=== PATIENT | female | born 1945 | race Caucasian/White ===

== ENCOUNTER 2016-12-12 07:24 | Outpatient (CLI) | payer MEDICARE, BC ==
--- NOTE | ~2016-12-12 | HEMODYNAMI ---
PATIENT:ADRY HIGGINS MEDICAL RECORD: [id number] : 47 LOCATION:DMattCAT ADMISSION DATE: 12/12/16 Generatedon:12/12/20169:56 Patient name: ADRY HIGGINS Patient #: [id number] SSN: D OB: 1945 Date of study: 12/12/2016 Page: Of Hemodynamic Procedure Report Patient Data Patient Demographics Procedure consent was obtained First Name: ADRY Gender: Female Last Name: RONALDO : 1945 Patient #: [id number] Age: 71 year(s) Race: Unknown Additional ID: [id number] Contact details [address]: [address] [place] [address] State: [place] City: [place] Zip code: [address] Admission Admission Data Admission Date: 12/12/2016 Admission Time: 7:24 Height (in.): 68 BSA: 2.16 (m2) Height (cm.): 172.72 BMI: 34.53 (kg/m2) Weight (lbs.): 227.08 Weight (kg.): 103 Lab Results Lab Result Date: 12/12/2016 Lab Result Time: 0:00 Biochemistry Name Units Result Min Max Creatinine mg/dl 0.7 --(*---)-- 0.6 1.3 CBC Name Units Result Min Max Hemoglobin g/dl 15.1 --(-*--)-- 13.5 17.5 Procedure Procedure Types Cath Procedure Diagnostic Procedure LHC LHC w/Coronaries w/Grafts FFR/IVUS Intra-Coronary IVUS Initial PCI Procedure Coronary Stent Initial Miscellaneous Procedures Moderate Sedation up to 15 minutes Peripheral Cath Diagnostic Procedure Cath Peripheral Four Vessel Arteriogram Procedure Description Procedure Date Procedure Date: 12/12/2016 Procedure Start Time: 9:32 Procedure End Time: 9:55 Procedure Staff Name Function Fletcher Rice MD Performing Physician Leandra Botello RT Scrub Juliane Artis RN Nurse Oswaldo Carter RT Monitor Conrad Richardson RN Meat Clerk Procedure Data Cath Procedure Fluoroscopy Diagnostic fluoroscopy Total fluoroscopy Time: 5.7 time: 5.7 min min Diagnostic fluoroscopy Total fluoroscopy dose: dose: 1166 mGy 1166 mGy Contrast Material Contrast Material Type Amount (ml) Isovue 300 155 Entry Location Entry Primary Successful Side Size Upsize Upsize Entry Closure Succes sful Closure Location (Fr) 1 (Fr) 2 (Fr) Remarks Device Remarks Femoral Right 5 Fr 6 Fr Exoseal artery Short Estimated blood loss: 10 ml Diagnostic catheters Device Type Used For End Catheter Placement Cordis 5Fr Pigtail Procedure Catheter (MP) Cordis 5Fr JL 4.0 Procedure Catheter (MP) Cordis 5Fr 3DRC Catheter Procedure (MP) Diagnostic Infinity 5Fr Procedure AR 2 MOD catheter Procedure Complications No complications Procedure Medications Medication Administration Route Dosage Oxygen NC 2 l/min Lidocaine 2% added to field 20 Heparin Flush Bag added to field 2 bags (1000units/500ml NS) 0.9% NaCl I.V. 100 ml/hr Versed I.V. 1 mg Fentanyl I.V. 50 mcg Versed I.V. 1 mg Fentanyl I.V. 50 mcg Heparin Bolus I.V. 4000 units Integrilin (Bolus I.V. 9 ml 2mg/ml) Plavix P.O. 600 mg Hemodynamics Rest BSA: 2.16 (m2) HGB: 15.1 (g/dl) O2 Consumption: Estimated: 196.24 (ml/min) O2 Co nsumption indexed: Estimated:90.85 (ml/min/m) Heart Rate: 67 (bpm) Snapshots Pre Cath Intra NCS Post Cath Vital Signs Time Heart Resp SPO2 etCO2 NIBP (mmHg) Rhythm Pain Sedation Rate (ipm) (%) (mmHg) Status Level (bpm) 9:13:01 74 18 97 37.3 175/87(133) NSR 0 (11) 10(A) , No pain 9:17:35 66 18 99 41.1 159/84(136) NSR 0 (11) 10(A) , No pain 9:22:01 66 18 98 41.8 152/84(127) NSR 0 (11) 10(A) , No pain 9:26:26 63 14 94 47.8 133/66(110) NSR 0 (11) 10(A) , No pain 9:30:42 65 13 94 41.1 123/69(98) NSR 0 (11) 10(A) , No pain 9:35:02 67 12 95 32.1 137/64(97) NSR 0 (11) 9(A) , No pain 9:39:18 74 13 96 48.6 133/71(104) NSR 0 (11) 9(A) , No pain 9:43:36 72 14 95 0 115/57(90) NSR 0 (11) 9(A) , No pain 9:47:52 76 12 95 17.9 118/64(100) NSR 0 (11) 9(A) , No pain 9:52:10 74 14 96 50.1 123/68(105) NSR 0 (11) 10(A) , No pain Medications Time Medication Route Dose Verified Delivered Reason Notes Effectiveness by by 9:14:49 Oxygen NC 2 Fletcher Buffie used for l/min Dwayne Artis RN procedure 9:14:59 Lidocaine 2% added 20ml Fletcher Fletcher for local to vial Dwayne Rice MD anesthetic field 9:15:05 Heparin Flush added 2 Fletcher Fletcher used for Bag to bags Dwayne Rice MD procedure (1000units/500ml field NS) 9:15:14 0.9% NaCl I.V. 100 Fletcher Buffie Per physician ml/hr Dwayne Artis RN 9:30:06 Versed I.V. 1 mg Fletcher Greerie for sedation Dwayne Artis RN 9:30:12 Fentanyl I.V. 50 Fletcher Buffie for sedation mcg Dwayne Artis RN 9:38:46 Versed I.V. 1 mg Fletcher Grereie for sedation Dwayne Artis RN 9:38:50 Fentanyl I.V. 50 Fletcher Greerie for sedation mcg Dwayne Artis RN 9:41:22 Heparin Bolus I.V. 4000 Fletcher Greerie for verifie d units Dwayne Artis RN anticoagulation with dr rice 9:43:05 Integrilin I.V. 9 ml Fletcher Greerie for wasted 1 (Bolus 2mg/ml) Dwayne Artis RN antiplatelet ml of therapy vial 9:53:10 Plavix P.O. 600 Fletcher Cardozo for mg Dwayne Artis RN antiplatelet therapy Procedure Log Time Note 9:00:30 Conrad Richardson RN sent for patient. Start room use. 9:00:31 Time tracking: Regular hours 9:00:35 Plan of Care:Hemodynamics will remain stable., Cardiac rhythm will remain stable., Comfort level will be maintained., Respiratory function will remain adequate., Patient/ family verbilizes understanding of procedure., Procedure tolerated without complication., Recovers from procedure without complications.. 9:05:32 Lab Result : Hemoglobin 15.1 g/dl 9:05:32 Lab Result : Creatinine 0.7 mg/dl 9:07:01 Patient received from Pre/Post Procedure Room to [facility] 2 Alert and oriented. Tansferred to table in Supine position. 9:07:02 Warm blankets applied, and ramesh hugger turned on for patient comfort. 9:07:02 Correct patient and procedure confirmed by team. 9:07:03 Signed procedure consent form obtained from patient. 9:07:05 ECG and BP/O2 sat monitors applied to patient. 9:07:06 Full Disclosure recording started 9:11:35 Vital chart was started 9:14:49 Oxygen 2 l/min NC was administered by Juliane Artis RN; used for procedure; 9:14:59 Lidocaine 2% 20ml vial added to field was administered by Fletcher Rice MD; for local anesthetic; 9:15:05 Heparin Flush Bag (1000units/500ml NS) 2 bags added to field was administered by Fletcher Rice MD; used for procedure; 9:15:14 0.9% NaCl 100 ml/hr I.V. was administered by Juliane Artis RN; Per physician; 9:18:11 Baseline sample Acquired. 9:18:14 Rhythm: sinus rhythm 9:18:24 H&P Date Dictated: 12/08/2016 Within 30 days and on chart., H&P Addendum completed by physician on day of procedure. (MUST COMPLETE FOR ALL OUTPATIENTS). 9:18:24 Pre-procedure instructions explained to patient. 9:18:25 Pre-op teaching completed and patient verbalized understanding. 9:20:02 Family in patients room. 9:20:04 Patient NPO since Midnight. 9:20:06 Is the patient allergic to Iodine/contrast media? No. 9:20:08 Is patient on blood thinner?No 9:20:10 Patient diabetic? Yes. 9:20:27 If diabetic: On Metformin? Yes 9:20:30 If on Metformin: Last Dose? 12/10/2016 9:20:33 Patient not . Patient is over age 55. 9:20:39 Snore? Yes 9:20:40 Sleep apnea? No 9:20:41 Deviated septum? No 9:20:41 Opens mouth fully? Yes 9:20:42 Sticks out tongue? Yes 9:20:45 Airway obstruction? Yes COPD 9:20:49 Dentures? Yes IN 9:20:52 Pre procedure: right dorsailis pedis pulse 1+ Palpable, but thready & weak; easily obliterated 9:20:54 Patient pain scale 0/10 ?. 9:21:10 IV patent on arrival in left hand with 0.9% NaCl at [facility]. 9:22:22 Lab results completed and on chart. 9:22:26 Right groin area was prepped with chlora-prep and draped in sterile fashion 9:22:27 Alarms reviewed by R. N. 9:22:28 Sharps counted by scrub and verified by R.N. 9:22:50 Procedure type changed to Cath procedure, Diagnostic procedure, LHC, LHC w/Coronaries w/Grafts, FFR/IVUS, Intra-Coronary IVUS Initial, PCI procedure, Coronary Stent Initial, Miscellaneous Procedures, Moderate Sedation up to 15 minutes, Peripheral Cath Diagnostic Procedure, Cath Peripheral, Four Vessel Arteriogram 9:23:52 Use device set Femoral Dx 9:23:53 Tegaderm 4 x 4 opened to sterile field. 9:23:55 Acist Hand Control opened to sterile field. 9:23:55 Acist Manifold opened to sterile field. 9:23:57 Acist Syringe opened to sterile field. 9:23:57 Bag Decanter opened to sterile field. 9:23:57 Medline Cath Pack opened to sterile field. 9:23:58 Terumo 5Fr Freeborn Sheath opened to sterile field. 9:23:58 St Yosi 260cm J .035 wire opened to sterile field. 9:23:59 Diagnostic Infinity 5Fr Multipack catheter opened to sterile field. 9:24:48 Cook 18G 7cm Percutaneous Entry needle opened to sterile field. 9:24:59 Zero performed for pressure channel P1 9:25:01 Zero performed for pressure channel P1 9:29:07 --------ALL STOP TIME OUT------ 9:29:08 Final Timeout: patient, procedure, and site verified with staff and physician. All members of the team are in agreement. 9:29:15 Right groin site verified by team. 9:29:17 Physical assessment completed. ASA score P 2 - A patient with mild systemic disease as per Fletcher Rice MD. 9:29:23 Sedation plan: IV Moderate Sedation Versed, Fentanyl 9:30:06 Versed 1 mg I.V. was administered by Juliane Artis RN; for sedation; 9:30:10 Patient Weight : 227.08 lbs 9:30:12 Fentanyl 50 mcg I.V. was administered by Juliane Artis RN; for sedation; 9:30:15 Patient Height : 68 inches 9:32:53 Procedure started. 9:32:56 Local anesthetic to right femoral artery with Lidocaine 2% by Fletcher Rice MD.INITIAL ACCESS ONLY 9:34:24 A 5 Fr sheath was inserted into the Right Femoral artery 9:34:39 A Cordis 5Fr Pigtail Catheter (MP) was advanced over the wire and used for Procedure. 9:34:43 LV angiography performed. 9:34:44 LV gram done using LYONS 9:34:48 EF : 60 % 9:34:52 Injector settings: Ml/sec: 10, Volume: 20, 9:34:54 Catheter removed. 9:35:05 A Cordis 5Fr JL 4.0 Catheter (MP) was advanced over the wire and used for Procedure. 9:35:24 LCA angiography performed. 9:36:09 Catheter removed. 9:36:16 A Cordis 5Fr 3DRC Catheter (MP) was advanced over the wire and used for Procedure. 9:36:55 CASTRO to LAD angiography performed. 9:37:06 Left subclavian angiography performed 9:37:56 Left carotid angiography performed. 9:37:59 Right subclavian angiography performed 9:38:46 Versed 1 mg I.V. was administered by Juliane Artis RN; for sedation; 9:38:48 RCA angiography performed. 9:38:50 Fentanyl 50 mcg I.V. was administered by Juliane Artis RN; for sedation; 9:39:08 Catheter removed. 9:39:33 A Diagnostic Infinity 5Fr AR 2 MOD catheter was advanced over the wire and used for Procedure. 9:40:32 Catheter removed. unable to cannulate vessel. 9:40:34 Terumo 6Fr Freeborn Sheath opened to sterile field. 9:40:35 Merit BasixCompak Inflation Kit opened to sterile field. 9:41:12 [place] IVUS Catheter opened to sterile field. 9:41:12 [place] Sci PT Graphix J 300cm 0.014 guide wire opened to sterile field. 9:41:13 Medtronic Launcher 6Fr AR 2.0 guide catheter opened to sterile field. 9:41:22 Heparin Bolus 4000 units I.V. was administered by Juliane Artis RN; for anticoagulation; verified with dr rice 9:41:25 Sheath upsized to a 6 Fr Short. 9:41:31 6 Fr AR 2 guide catheter was inserted over the wire 9:42:04 PT GRAPHIX wire advanced. 9:42:28 Wire removed. damaged. 9:42:34 [place] Sci PT Graphix J 300cm 0.014 guide wire opened to sterile field. 9:42:47 New PT GRAPHIX wire advanced. 9:43:05 Integrilin (Bolus 2mg/ml) 9 ml I.V. was administered by Juliane Artis RN; for antiplatelet therapy; wasted 1 ml of vial 9:43:26 Wire advanced across lesion. 9:43:30 IVUS catheter advanced over wire. 9:44:18 IVUS pass to RCA lesion performed. 9:46:17 IVUS catheter removed over wire. 9:47:18 Inflation Number: 1 A Medtronic Integrity 4.0 X 26 stent was prepped and advanced across the Mid RCA. The stent was deployed at 15 JENSEN for 0:10 (min:sec). 9:47:23 Stent catheter was removed intact over wire. 9:47:24 Wire removed. 9:47:27 Guide catheter removed. 9:47:44 Sheath removed intact; hemostasis achieved with Exoseal to the Right Femoral artery. 9:47:54 Cordis 6Fr Exoseal opened to sterile field. 9:47:56 Procedure ended.(Physican Out) 9:51:00 Fluoroscopy time 05.70 minutes. 9:51:04 Fluoroscopy dose: 1166 mGy 9:51:04 Flurop Dose total: 1166 9:51:08 Contrast amount:Isovue 300 155ml. 9:51:10 Sharps counted by scrub and verified by R.N. 9:51:12 Insertion/operative site no bleeding no hematoma. 9:51:14 Post-op/insertion site Right Femoral artery dressed using a 4 x 4 and Tegaderm. 9:51:16 Post Procedure Pulses reassessed and unchanged 9:51:18 Post-procedure physical assessment completed. ASA score P 2 - A patient with mild systemic disease as per Fletcher Rice MD. 9:51:22 Post procedure rhythm: unchanged. 9:51:24 Estimated blood loss: 10 ml 9:51:25 Post procedure instruction explained to patient.Patient verbalizes understanding. 9:51:26 Patient needs reinforcement of post procedure teaching. 9:51:27 Procedure and supply charges have been captured, reviewed, submitted and are correct. 9:51:30 Procedure Complication : No complications 9:53:10 Plavix 600 mg P.O. was administered by Juliane Artis RN; for antiplatelet therapy; 9:55:39 Vital chart was stopped 9:55:39 See physician's report for complete and final results. 9:55:42 Report given to Pre/Post Procedure Room. 9:55:44 Patient transfered to Pre/Post Procedure Room with Stretcher. 9:55:47 Procedure ended. 9:55:47 Full Disclosure recording stopped 9:55:56 End room use (Document Last) Intervention Summary Intervention Notes Time ActionType Lesion and Equipment Action# Pressure Duration Attributes Used 9:47:18 Place stent Mid RCA Medtronic 1 15 00:10 Integrity 4.0 X 26 stent Device Usage Item Name Manufacture Quantity Catalog Number Hospital Part Current [facility] Lot# / Charge Number Stock Stock Serial# Code Tegaderm 4 x 3M 1 [id number] 784363 [id number] 5 4 Acist Hand Acist 1 86886 482387 562427 125413 5 Control Medical Systems Inc Acist Acist 1 12253 883099 460672 854615 5 Manifold Medical Systems Inc Acist Acist 1 36300 311192 882148 816777 20 Syringe Medical Systems Inc Bag Decanter Microtek 1 2001S 006664 14071 845861 5 Medical Inc. Medline Cath Cardinal 1 [id number] 546703 34732 473539 5 Pack Health Terumo 5Fr Terumo 1 [id number] 033223 568079 505647 [address] Yosi St Yosi 1 877439 090576 737004 259499 30 260cm J .035 wire Diagnostic Cardinal 1 [id number] 122446 59066 599361 30 Infinity 5Fr Health Multipack catheter Cook 18G 7cm [facility] 1 [id number] 678682 63899 989681 5 Percutaneous Entry needle Cordis 5Fr Cardinal 1 [id number] 5 Pigtail Health Catheter (MP) Cordis 5Fr Cardinal 1 352757 5 JL 4.0 Health Catheter (MP) Cordis 5Fr Cardinal 1 070926 5 3DRC Health Catheter (MP) Diagnostic Cardinal 1 [id number] 128916 028756 929108 20 Infinity 5Fr Health AR 2 MOD catheter Terumo 6Fr Terumo 1 [id number] 575634 647989 015138 40 Freeborn Sheath [facility] Merit 1 [id number] 949715 869195 481743 15 [employer] Medical Inflation Kit Burley Burley 1 [id number] 984184 365324 459821 8 [place] IVUS Catheter [place] Sci [place] 2 [id number] 084668 916520 460612 5 PT Graphix J Scientific 300cm 0.014 guide wire Medtronic Medtronic 1 [id number] 831342 63620 324527 1 Launcher 6Fr AR 2.0 guide catheter Medtronic Medtronic 1 [id number] 552684 739207 1 [id number] Integrity 4.0 X 26 stent Cordis 6Fr Cardinal 1 [id number] 605582 846117 345720 10 [facility] Signature Audit [place] Stage Time Signature Unsigned Intra-Procedure 12/12/2016 Oswaldo Carter 9:56:33 AM RT(R) Signatures Monitor : Oswaldo Carter RT Signature : Date : Time : [facility] [address] [place] [address]
[2016-12-12] MEDS ORDERED: BAYER CHEWABLE81 MG PO (07:42)
[2016-12-12] MEDS ORDERED: JARDIANCE25 MG PO (07:43)
[2016-12-12] MEDS ORDERED: CRESTOR10 MG PO (07:44)
[2016-12-12] MEDS ORDERED: GLUCOPHAGE500 MG PO (07:44)
[2016-12-12] MEDS ORDERED: NEURONTIN 300300 MG PO (07:45)
[2016-12-12] MEDS ORDERED: NORVASC5 MG PO (07:45)
[2016-12-12] MEDS ORDERED: BETAPACE 80 MG80 MG PO (07:46)
[2016-12-12] MEDS ORDERED: PRISTIQ50 MG PO (07:46)
[2016-12-12 07:49] VITALS: BP 148/100; BMI 34.4
[2016-12-12 07:57] LABS: BASOPHILS 0.6 % (0-2); EOSINOPHILS 4.1 % (0-7); HEMATOCRIT 47.9 % (36.0-48.0); HEMOGLOBIN 15.1 g/dL (12-16); IMMATURE GRANULOCYTES 0.2 % (0-5); LYMPHOCYTES 25.6 % (15-50); MCH 28.7 pg (26.0-34.0); MCHC 31.5 g/dL (31.0-37.0); MCV 90.9 fL (80.0-100.0); MEAN PLATELET VOLUME 10.2 fL (7.4-10.4); MONOCYTES 10.3 % (2-11); NEUTROPHILS 59.2 % (40-80); RBC 5.27 10x6/uL (4.00-5.40); RDW 14.4 % (11.5-14.5); WBC 8.5 10x3/uL (4.8-10.8)
[2016-12-12 08:00] LABS: PLATELET COUNT 198 10x3/uL (130-400)
[2016-12-12 08:12] LABS: CALC OSMOLALITY 283 mosm/kg (275-300); CALCIUM 9.1 mg/dL (8.5-10.1); CARBON DIOXIDE 26.7 mmol/L (21.0-32.0); CHLORIDE - SERUM 106 mmol/L (98-107); CREATININE - SERUM 0.7 mg/dL (0.6-1.3); GLUCOSE 141 mg/dL (74-106); POTASSIUM - SERUM 4.3 mmol/L (3.5-5.1); SODIUM 140 mmol/L (136-145); UREA NITROGEN 21 mg/dL (7-18); eGFR NON AFRICAN AMERICAN 88 mL/min (90-120)
[2016-12-12] MEDS ORDERED: PLAVIX75 MG PO (10:19)
--- NOTE | 2016-12-12 10:20 | NUR ---
2L NC, NO RESP DISTRESS. RIGHT GROIN 6F EXOSEAL CDI, NO BLEEDING OR HEMATOMA NOTED. NO C/O CHEST PAIN. C/O NAUSEA. ZOFRAN GIVEN PER ORDERS. VSS. INSTRUCTED PT TO KEEP HEAD FLAT ON PILLOW AND RIGHT LEG STRAIGHT.
--- NOTE | 2016-12-12 10:50 | NUR ---
RESTING QUIETLY WITH EYES CLOSED. 2L NC, NO RESP DISTRESS. RIGHT GROIN 6F EXOSEAL CDI, NO BLEEDING OR HEMAOTMA NOTED. NO C/O NAUSEA OR PAIN. VSS. CALL LIGHT WITHIN REACH.
--- NOTE | 2016-12-12 11:05 | NUR ---
RIGHT GROIN 6F EXOSEAL CDI, NO BLEEDING OR HEMATOMA NOTED. 2L NC, NO RESP DISTRESS. NO C/O NAUSEA OR CHEST PAIN. VSS. DR. LEYVA AT BEDSIDE SPEAKING WITH PT AND FAMILY MEMBER. WILL CONTINUE TO MONITOR.
--- NOTE | 2016-12-12 11:35 | NUR ---
RIGHT GROIN 6F EXOSEAL CDI, NO BLEEDING OR HEMATOMA NOTED. 2L NC, NO RESP DISTRESS. NO C/O NAUSEA AT THIS TIME. FAMILY AT BEDSIDE, CALL LIGHT WITHIN REACH.
--- NOTE | 2016-12-12 12:05 | NUR ---
C/O PAIN IN BACK. REC'D ORDER FOR TORADOL FROM DR. LEYVA. GIVEN PER APR.
--- NOTE | 2016-12-12 13:20 | NUR ---
HOB ELEVATED 30 DEGREES. RIGHT GROIN 6F EXOSEAL CDI, NO BLEEDING OR HEMATOMA NOTED.
--- NOTE | 2016-12-12 13:40 | NUR ---
LEFT PIV D/C'D WITH CATHETER INTACT, BAND AID TO SITE. UP TO BEDSIDE TO GET DRESSED.
--- NOTE | 2016-12-12 13:45 | NUR ---
UP TO RESTROOM TO VOID.
--- NOTE | 2016-12-12 13:50 | NUR ---
DISCHARGE INSTRUCTIONS GIVEN, VERBALIZED UNDERSTANDING.
--- NOTE | 2016-12-12 13:57 | NUR ---
TAKEN OUT VIA WHEELCHAIR BY CATH BRAZING FURNACE OPERATOR. LEFT FACILITY WITH FAMILY MEMBER AND ALL PERSONAL BELONGINGS.
--- NOTE | 2016-12-12 16:56 | OP ---
PATIENT NAME: ADRY HIGGINS MEDICAL RECORD: [id number] :47 LOCATION:D.CAT ADMISSION DATE: SURGEON: TIFFANI LEYVA MD DATE OF OPERATION: 12/12/2016 PROCEDURES: 1. PTCA stent RCA. 2. Intravascular ultrasound. 3. Left heart catheterization. 4. Selective coronary angiography. 5. Vein graft angiography. 6. CASTRO angiography. 7. Left ventriculogram. 8. Four-vessel carotid and vertebral angiography. INDICATION: Angina, coronary artery disease, dizziness, and carotid vascular disease. PROCEDURE IN DETAIL: After informed consent was obtained and after detailed explanation of risks, benefits as well as alternative therapies, the patient elected to proceed with angiogram and angioplasty. The right femoral area was prepped and draped in normal sterile fashion. The right femoral artery was cannulated via modified Seldinger technique with placement of 6-Swedish sheath. All catheters exchanged through this sheath. FINDINGS: Four-vessel carotid and vertebral angiography was performed with a subselection of each subclavian as well as the left carotid. RIGHT SIDE: The common internal and external carotids have mild plaquing, none greater than 20%, no flow-limiting stenosis. Vertebral artery has mild plaquing, none greater than 20%. LEFT SYSTEM: The common internal and external carotids have mild plaquing, none greater than 20%. Vertebral artery has no stenosis greater than 20%. Left ventriculogram was performed in standard 30-degree LYONS view, reveals good cardiac wall motion throughout all segments. Overall ejection fraction estimated at 60%. SELECTIVE CORONARY ANGIOGRAPHY: 1. Left main showed no significant angiographic disease. 2. Left anterior descending has multiple areas with 70+ percent stenosis. 3. CASTRO to the distal LAD is widely patent. Distal LAD is widely patent. 4. Left circumflex has mild irregularities, but no flow-limiting stenosis. 5. Right coronary is 65% to 70% stenosis proximally confirmed by intravascular ultrasound. 6. Vein graft to the right coronary is closed. PTCA STENT OF THE RIGHT CORONARY: The stent used was a 4.0 x 26 mm Integrity. Result was 0% residual stenosis. OVERALL IMPRESSION: Successful percutaneous transluminal coronary angioplasty stent of the right coronary artery going from 65%-70% initial stenosis to 0% residual stenosis. OPERATIVE REPORT [id number] ADRY HIGGINS TRANSINT:[id number] Voice Confirmation ID: [id number] DOCUMENT ID: [id number] TIFFANI LEYVA MD at 1656 CC: [id number] DICTATION DATE: 12/12/1654 MACHINE HEEL SPRAYER: 12/12/16 1034 DEP CLI 12/12/16 [place] [id number] [place] [id number]
== END 2016-12-12 13:57 | disposition home or self-care (01) ==
LOC: D.CATH 07:24
PROVIDERS: Internal Medicine Interventional Cardiology
DX: I25.119 Atherosclerotic heart disease of native coronary artery with unspecified angina pectoris (principal); R07.9 Chest pain, unspecified; R42 Dizziness and giddiness; Z87.891 Personal history of nicotine dependence; E11.9 Type 2 diabetes mellitus without complications; I10 Essential (primary) hypertension; Z01.812 Encounter for preprocedural laboratory examination

== ENCOUNTER → 2016-12-25 16:47 | Outpatient (CLI) | payer MEDICARE, BC ==
[2016-12-12 07:49] VITALS: BMI 34.4
[~2016-12-25 16:47] MED LIST: BAYER CHEWABLE81 MG PO; BETAPACE 80 MG80 MG PO; CRESTOR10 MG PO; GLUCOPHAGE500 MG PO; JARDIANCE25 MG PO; NEURONTIN 300300 MG PO; NORVASC5 MG PO; PLAVIX75 MG PO; PRISTIQ50 MG PO
[2016-12-25 17:54] LABS: CALC OSMOLALITY 288 mosm/kg (275-300); CALCIUM 8.7 mg/dL (8.5-10.1); CARBON DIOXIDE 26.4 mmol/L (21.0-32.0); CHLORIDE - SERUM 106 mmol/L (98-107); CREATININE - SERUM 0.5 mg/dL (0.6-1.3); GLUCOSE 111 mg/dL (74-106); POTASSIUM - SERUM 4.3 mmol/L (3.5-5.1); SODIUM 144 mmol/L (136-145); UREA NITROGEN 16 mg/dL (7-18); eGFR NON AFRICAN AMERICAN > 90 mL/min (90-120)
== END | disposition home or self-care (01) ==
LOC: D.LABREF 16:47
PROVIDERS: Internal Medicine Interventional Cardiology
DX: I10 Essential (primary) hypertension (principal)

== ENCOUNTER 2017-04-16 12:26 | Inpatient (IN) | payer MEDICARE, BC ==
[~2017-04-16] VITALS: Ht 175.3 cm; Wt 107.3 kg
--- NOTE | ~2017-04-16 | CN ---
PATIENT NAME:ADRY HENDRICKS MEDICAL RECORD: [id number] : 47 LOCATION:SEBD.1116 ADMIT DATE: 04/16/17 ACCOUNT: [id number] CONSULTING PHYSICIAN: MELONIE CONTRERAS MD REFERRING PHYSICIAN: BE WANG MD DATE OF CONSULTATION: 04/20/2017 CONSULT REQUESTING PHYSICIAN: Kevon Ingram MD REASON FOR CONSULTATION: Acute hypoxic respiratory failure, CHF exacerbation. HISTORY OF PRESENT ILLNESS: Ms. Hendricks is a 71-year-old female who recently underwent aortic valve replacement at [facility] in [place]. She did well and was discharged to rehab and she developed congestive heart failure, swelling of the lower extremity, and shortness of breath, transferred back to [facility] and then she was treated medically, improved and transferred back to the [facility] for further rehabilitation. She has severe epistaxis. She was seen by Dr. Salazar and he packed and cauterized her nostrils. This morning, the patient had worsening shortness of breath. She required 10 liters of oxygen. She has orthopnea, PND. Denies any fever or chills. No night sweats. REVIEW OF SYSTEMS: As in history of present illness. PAST MEDICAL HISTORY: 1. CHF. 2. Atrial fibrillation. 3. Aortic valve stenosis. 4. Diabetes mellitus. 5. History of CVA. 6. Hypertension. 7. Coronary artery disease. Denies any COPD. She has a remote history of smoking. PAST SURGICAL HISTORY: She has aortic valve replacement. PERSONAL AND SOCIAL HISTORY: The patient has a remote history of smoking. She is a nondrinker. ALLERGIES: She is allergic to SUCCINYLCHOLINE, PENICILLIN, FLU VACCINE. MEDICATIONS: Cardoz is reviewed. PHYSICAL EXAMINATION: GENERAL: Now, the patient is sitting in bed. She is wearing Venturi mask. She is not in acute distress. VITAL SIGNS: The blood pressure 161/77, pulse is 107, respirations 18, temperature 97.9, SPO2 is 97% on 10 liter Venturi mask. HEENT: Conjunctivae are pink. Sclerae not icteric. Pupils equal, round and reactive. NECK: Supple. There is elevated JVD. CHEST: Bilateral crackles. No wheezing. HEART: Rhythm regular with a grade II/ systolic murmur. ABDOMEN: Soft, bowel sounds present. No hepatosplenomegaly. RECTAL: Deferred. EXTREMITIES: No cyanosis, no clubbing. 1+ pedal edema. CONSULT REPORT [id number] ADRY HENDRICKS SKIN: Warm, normal turgor. CENTRAL NERVOUS SYSTEM: The patient is awake and alert. There is no obvious cranial nerve abnormality. The gait was not tested. CHEST RADIOGRAPH: There is bilateral pulmonary edema. OTHER LABORATORY DATA: CBC: WBC 13.9, hemoglobin 8.2, hematocrit 28.4, the platelet count 347. Chemistry: Sodium 139, potassium 3.6, BUN is 31, creatinine 0.9. ABG: The pH is 7.43, pCO2 is 58.7, pO2 is 100, bicarbonate is 39.6. IMPRESSION: 1. Acute hypoxic respiratory failure secondary to pulmonary edema. 2. Congestive heart failure, most likely systolic dysfunction. 3. Epistaxis. 4. Compensatory metabolic alkalosis, most likely contractures secondary to diuretics. 5. Status post aortic valve replacement. 6. Atrial fibrillation. RECOMMENDATION: Discontinue Bumex p.o. Start on Lasix 40 mg IV q.8 hourly. Continue empiric antibiotics. Followup labs and chest radiograph in the morning. Supplemental oxygen as required to keep the SpO2 above 90%. Dr. Ingram, thank you for involving me in the care of Ms. Hendricks. TRANSINT:[id number] Voice Confirmation ID: [id number] DOCUMENT ID: [id number] MELONIE CONTRERAS MD at 1340 CC: KEVON INGRAM [id number] DICTATION DATE: 04/20/171936 HARNESS PREPARER: 04/21/17 0210 DIS IN 04/29/17 [facility] [address] [place] [id number]
--- NOTE | ~2017-04-16 | RHP ---
PATIENT: ADRY HIGGINS MEDICAL RECORD: [id number] ACCOUNT: [id number] LOCATION:[facility] D.1116 : 47 ADMISSION DATE: 04/16/17 REHABILITATION HISTORY AND PHYSICAL EXAMINATION POST ADMISSION PHYSICIAN EXAMINATION DATE OF ADMISSION TO THE REHAB: 04/16/2017. ADMITTING DIAGNOSIS: CHF exacerbation. HISTORY OF PRESENT ILLNESS: The patient is a 71-year-old female patient with past medical history of CAD, atrial fib, aortic stenosis, hypertension, diabetes, and CVA. She recently underwent aortic valve replacement with tricuspid repair beginning of March. During that stay, the patient had complications including atrial fibrillation with rapid ventricular response, dyspnea, and generalized weakness. Once the patient was stabilized, she was sent to [facility] in [place]. She states that she continued to have shortness of breath and swelling to her legs and not able to participate therapy. She remained in the rehab for 8 days and then went to the ER. She was admitted to [facility] on 04/10/2017 with an acute exacerbation of CHF and acute right heart failure. She was started on IV Bumex and continued anticoagulation for atrial fib. She remained in AFib, but the rate is controlled at this time. She is on 2 liters of O2 via nasal cannula with a sat of 99%. She is tolerating cardiac, low salt diet, urinating without difficulty. Her last BM was 04/16. The patient has had epistaxis on 04/14. ENT was consulted. Oozing vessel 3 cm back of the left nasal septum, there was no intranasal masses noted. Cauterization with silver nitrate was done and Afrin times 3 days for event recurrence. She has not had a nosebleed since this event, but has been apparently bleeding here during the night. She has ambulated 40 feet with min assist, transferring with min assist, and performing ADLs with min assist. The patient was independent prior and still working and caring for her mother at home. She is motivated to return home to her prior level of functioning. Acute rehab was ordered by her admitting doctor. COMORBIDITIES: In this patient include diabetes, hypertension, dukpg-tr-potomyn heart failure, CVA, aortic stenosis, status post aortic valve repair. PAST MEDICAL HISTORY: Significant for coronary artery disease, hypertension, atrial fib, aortic stenosis, diabetes, and CVA. PAST SURGICAL HISTORY: Includes valve replacement. ALLERGIES: FLU VACCINE, SUCCINYLCHOLINE CHLORIDE, PENICILLIN. She is allergic to NICKEL, HYDROCODONE, SULFA, and CODEINE. CURRENT MEDICATIONS: Include Plavix 75 mg daily, Bumex 1 mg daily, aspirin chewable 81 mg daily, spironolactone 12.5 mg daily, Protonix 40 mg daily, Linzess 145 mcg daily. She is on warfarin 3 mg daily. She is on Crestor 10 mg at bedtime, potassium 20 mEq daily, polyethylene glycol 17 grams in 8 ounces of water daily, Zofran 4 mg q.6 hours p.r.n., Glucophage 500 mg with dinner. She is on Cozaar 25 mg b.i.d., Neurontin 300 mg at bedtime, Colace 100 mg b.i.d., Coreg 12.5 mg b.i.d. with meals, Mag-Ox 15 cc as needed, Tylenol 650 mg q.4 hours p.r.n., and Cardizem 60 mg q.i.d. HABITS: No alcohol or tobacco use. HISTORY AND PHYSICAL [id number] ADRY HIGGINS FAMILY HISTORY: Noncontributory. SOCIAL HISTORY: The patient hopes to return back home and get back to her prior level of functioning. REVIEW OF SYSTEMS: GENERAL: She does complain of weakness, especially since her nose has started bleeding. CARDIOVASCULAR: Denies any chest pain. LUNGS: Denies any shortness of breath. PHYSICAL EXAMINATION: VITAL SIGNS: Stable, afebrile. GENERAL: An obese female, in no acute distress. Alert upon exam. She does have some noted bleeding from the nares. HEENT: As above. LUNGS: Clear at this time. HEART: Irregular rate and rhythm. ABDOMEN: Benign. EXTREMITIES: No clubbing, cyanosis, or edema. NEUROLOGIC: She seems intact. LABORATORY DATA: Her white count is 7.8, H&H 9 and 32, and platelet count was noted to be 253. Her sodium is 138, potassium 3.5, BUN and creatinine of 37 and 1.0, and blood sugar was noted to be 121. Her INR today is noted to be 2.9. ASSESSMENT: This is a 71-year-old female patient admitted to rehab with a working diagnosis of exacerbation of congestive heart failure, complicated now by epistaxis. The patient has potential to make improvement. We instituted the following multidisciplinary therapies including to, but not limited to physical, occupational, respiratory, speech, nutritional services, prosthetics and orthotics. Given her complex condition and risk for more complications, rehabilitation services cannot be provided at a low level of care such as a retirement facility. PLAN: 1. Admit to [facility] rehab for intensive inpatient therapy to include the following disciplines: A. Physical therapy to improve gait, all transfer skills and bed mobility to a modified independent level. B. Occupational therapy to improve activities of daily living to a modified independent level. C. Case management to assist with discharge planning and placement options. D. Nutrition to assist with nutritional needs. E. Rehabilitation nursing to assist in monitoring the patient's underlying medical conditions and to assist with any type of bowel or bladder management. 2. The patient's current medical care and medications will be continued. 3. The patient will be placed on standard fall precautions. 4. I am going to consult ENT to see her during her stay. 5. We will follow up the results of above and treat as needed. TRANSINT:[id number] Voice Confirmation ID: [id number] DOCUMENT ID: [id number] HISTORY AND PHYSICAL [id number] ADRY HIGGINS notes whether there has been none or any medical/functional change since admission: - No change since pre-admission screen. HANK attests patient continues to be appropriate for IRF: - Continues to be appropriate. BE WANG MD at 0904 CC: [id number] DICTATION DATE: 04/17/17 0840 MANAGER OPERATIONS RESEARCH: 04/17/17 1102 ADM IN [address] [id number] [place] [address]
--- NOTE | ~2017-04-16 | CN ---
PATIENT NAME:ADRY HENDRICKS MEDICAL RECORD: [id number] : 47 LOCATION:[id number] ADMIT DATE: 04/16/17 ACCOUNT: [id number] CONSULTING PHYSICIAN: KACI PETTIT MD REFERRING PHYSICIAN: BE WANG MD DATE OF CONSULTATION: 04/20/2017 REASON FOR CONSULTATION: For epistaxis. HISTORY OF PRESENT ILLNESS: Ms. Hendricks is a 71-year-old female who apparently had some bleeding starting on Thursday, her right nostril was packed. She describes profuse bleeding. She is status post cardiac surgery and has been on aspirin, Plavix, Coumadin, and nasal oxygen. PHYSICAL EXAMINATION: GENERAL: She is healthy-appearing. She is alert. She is oriented. She is on nasal oxygen. FACE: Normal, symmetric, no lesions. EYES: Sclerae and conjunctivae are normal. ORAL CAVITY, OROPHARYNX: Normal. NOSE: She has packing on the right side of the nose and inflatable packing with air. NECK: Has no masses, no adenopathy. I cut the balloons and removed the nasal packing from the right side, left side looked good. Nasal cavity, no masses, polyps, or drainage. The right side then packed for 72 hours, but still profuse bleeding from the nose. She was given Afrin. It did not slow down at all, just profuse right-sided bleeding. IMPRESSION: Right-sided epistaxis. She has failed packing. PLAN: We are going to take her to the OR for endoscopic exam, control epistaxis, possibly repacking. I talked to her about that, just need to see what we find as the cause. TRANSINT:[id number] Voice Confirmation ID: [id number] DOCUMENT ID: [id number] KACI PETTIT MD at 1531 CC: [id number] DICTATION DATE: 04/20/17 1153 PUBLIC RELATIONS SUPERVISOR: 04/20/17 1205 ADM IN [place] [id number] [place] [address]
--- NOTE | ~2017-04-16 | DS ---
PATIENT:ADRY HIGGINS :47 MEDICAL RECORD: [id number] DISCHARGE SUMMARY ADMISSION DATE: 04/16/17 DISCHARGE DATE: 04/29/17 This is a discharge dated 04/29/2017 from inpatient rehabilitation. PRIMARY DIAGNOSIS: Decreased functional ability and ability to provide activities of daily living status post aortic valve replacement with tricuspid repair. SECONDARY DIAGNOSES: 1. Coronary artery disease. 2. Atrial fibrillation. 3. Aortic stenosis. 4. Hypertension. 5. Diabetes. 6. History of cerebrovascular accident. 7. Acute systolic congestive heart failure. 8. Acute respiratory failure with hypoxia. 9. Epistaxis. 10. Anemia. 11. Chronic obstructive pulmonary disease. CONSULTS THIS HOSPITALIZATION: 1. Pulmonary with Dr. Pacheco. 2. ENT with Dr. Salazar. PROCEDURES THIS HOSPITALIZATION: Cautery of epistaxis on 04/20/[address] Salazar. HOSPITAL COURSE: Full H&P is located elsewhere on the chart on this 71-year-old female who was admitted to inpatient rehab for physical therapy and occupational therapy to improve gait, transfer skills, bed mobility, and activities of daily living to a modified independent level. She was evaluated by PT and OT and their plans of care were followed. She required senior living care for observation and assessment and medication administration. Electrolytes were managed by protocol. She remained on appropriate home medications. Fingerstick blood sugars were monitored throughout her hospital stay with appropriate adjustment in medications as needed. She remained on supplemental oxygen to keep sats greater than 90%. She was transfused for an H&H of 7.6 and 26.5. She was seen by Dr. Salazar. She had nasal packing present on admission. She had continued bleeding after removal of packing and was taken to the OR for cautery of epistaxis on 04/20/2017. She was on Omnicef for antibiotic coverage. She was seen by Dr. Pacheco from a pulmonary standpoint. She was on Lasix for diuresis. Chest x-rays were followed with adjustment in diuretics as needed. She had nebulized treatments with ipratropium and Xopenex for respiratory support. She was cooperative with therapies, progressing towards goals. Case management was involved for discharge planning. She was considered stable for discharge on 04/29/2017. DISCHARGE MEDICATIONS: As per discharge medication reconciliation. DISCHARGE DISPOSITION: The patient is discharged home. She will continue her current diet and level of activity. She will have home health for continued PT and OT. She will be set up with portable oxygen and nebulizer with [facility] DISCHARGE SUMMARY REPORT [id number] ADRY HIGGINS. She will follow up with primary care and specialists as directed. At least 30 minutes was spent in this discharge activity. TRANSINT:[id number] Voice Confirmation ID: [id number] DOCUMENT ID: [id number] Dictated By: CATRACHITO GONZALEZ I have interviewed/examined the above patient and agree with these documented findings. BE WANG MD at 1511 at 1512 CC: [id number] DICTATION DATE: 05/24/17 1748 STITCH BURNISHER: 05/25/17 1205 DIS IN 04/29/17 [id number] [place] [address]
[2017-04-16] MEDS ORDERED: CARDIZEM60 MG PO (16:25)
[2017-04-16] MEDS ORDERED: LINZESS145 MCG PO (16:26)
[2017-04-16] MEDS ORDERED: PROTONIX40 MG PO (16:27)
[2017-04-16] MEDS ORDERED: APAP325 MG PO (16:28)
[2017-04-16] MEDS ORDERED: ALDACTONE25 MG PO (16:28)
[2017-04-16] MEDS ORDERED: BUMEX 1 MG TAB1 MG PO (16:29)
[2017-04-16] MEDS ORDERED: BUMEX2 MG PO (16:29)
[2017-04-16] MEDS ORDERED: COLACE100 MG PO (16:31)
[2017-04-16] MEDS ORDERED: COREG12.5 MG PO (16:31)
[2017-04-16] MEDS ORDERED: COZAAR25 MG PO (16:32)
[2017-04-16] MEDS ORDERED: NEURONTIN 300300 MG PO (16:32)
[2017-04-16] MEDS ORDERED: ZOFRAN4 MG PO (16:33)
[2017-04-16] MEDS ORDERED: MIRALAX17 GM PO (16:34)
[2017-04-16] MEDS ORDERED: COUMADIN3 MG PO (16:35)
[2017-04-16] MEDS ORDERED: K-DUR20 MEQ PO (16:35)
[2017-04-16] MEDS ORDERED: MAALOX ADVANCE355 ML PO (16:41)
[2017-04-16 20:55] VITALS: BP 105/49; BMI 35.5
[2017-04-17 01:31] VITALS: BP 126/55
[2017-04-17 07:05] LABS: BASOPHILS 0.5 % (0-2); EOSINOPHILS 7.9 % (0-7); HEMATOCRIT 32.4 % (36.0-48.0); HEMOGLOBIN 9.1 g/dL (12-16); IMMATURE GRANULOCYTES 0.4 % (0-5); LYMPHOCYTES 21.3 % (15-50); MCH 25.1 pg (26.0-34.0); MCHC 28.1 g/dL (31.0-37.0); MCV 89.5 fL (80.0-100.0); MEAN PLATELET VOLUME 9.3 fL (7.4-10.4); NEUTROPHILS 56.9 % (40-80); RBC 3.62 10x6/uL (4.00-5.40); RDW 15.9 % (11.5-14.5); WBC 7.8 10x3/uL (4.8-10.8)
[2017-04-17 07:06] LABS: ANION GAP 6.7 mmol/L (8-16); CALCIUM 8.8 mg/dL (8.5-10.1); CARBON DIOXIDE 38.8 mmol/L (21.0-32.0); PLATELET COUNT 253 10x3/uL (130-400); POTASSIUM - SERUM 3.5 mmol/L (3.5-5.1)
[2017-04-17 07:15] LABS: INR 2.9 (0.85-1.17); PROTIME 29.6 SECONDS (11.6-15.0)
[2017-04-17 09:12] VITALS: BP 125/51
[2017-04-17 22:37] VITALS: BP 107/55
[2017-04-18 06:53] LABS: BASOPHILS 0.5 % (0-2); EOSINOPHILS 4.2 % (0-7); HEMATOCRIT 30.3 % (36.0-48.0); HEMOGLOBIN 8.5 g/dL (12-16); IMMATURE GRANULOCYTES 0.8 % (0-5); LYMPHOCYTES 19.4 % (15-50); MCH 24.9 pg (26.0-34.0); MCHC 28.1 g/dL (31.0-37.0); MCV 88.9 fL (80.0-100.0); MEAN PLATELET VOLUME 9.1 fL (7.4-10.4); MONOCYTES 13.2 % (2-11); NEUTROPHILS 61.9 % (40-80); PLATELET COUNT 314 10x3/uL (130-400); RBC 3.41 10x6/uL (4.00-5.40); RDW 15.9 % (11.5-14.5); WBC 9.3 10x3/uL (4.8-10.8)
[2017-04-18 07:05] LABS: ANION GAP 9.8 mmol/L (8-16); CALCIUM 8.8 mg/dL (8.5-10.1); CARBON DIOXIDE 38.9 mmol/L (21.0-32.0); CREATININE - SERUM 0.9 mg/dL (0.6-1.3); POTASSIUM - SERUM 3.7 mmol/L (3.5-5.1)
[2017-04-18 08:33] VITALS: BP 128/52
[2017-04-18 20:07] VITALS: BP 145/61
[2017-04-19 06:29] LABS: INR 3.27 (0.85-1.17); PROTIME 32.6 SECONDS (11.6-15.0)
[2017-04-19 07:58] VITALS: BP 152/69
[2017-04-19 19:25] VITALS: BP 127/49
[2017-04-20 06:34] LABS: BASOPHILS 0.2 % (0-2); EOSINOPHILS 2.8 % (0-7); HEMATOCRIT 28.4 % (36.0-48.0); HEMOGLOBIN 8.2 g/dL (12-16); LYMPHOCYTES 16.8 % (15-50); MCH 25.2 pg (26.0-34.0); MCHC 28.9 g/dL (31.0-37.0); MCV 87.4 fL (80.0-100.0); MONOCYTES 12.9 % (2-11); NEUTROPHILS 66.3 % (40-80); PLATELET COUNT 347 10x3/uL (130-400); RBC 3.25 10x6/uL (4.00-5.40)
[2017-04-20 06:36] LABS: WBC 13.9 10x3/uL (4.8-10.8)
[2017-04-20 06:40] LABS: ANION GAP 11.3 mmol/L (8-16); CALCIUM 7.5 mg/dL (8.5-10.1); CARBON DIOXIDE 34.3 mmol/L (21.0-32.0); CREATININE - SERUM 0.9 mg/dL (0.6-1.3); POTASSIUM - SERUM 3.6 mmol/L (3.5-5.1)
[2017-04-20 06:50] LABS: INR 3.3 (0.85-1.17); PROTIME 32.8 SECONDS (11.6-15.0)
[2017-04-20 07:46] VITALS: BP 161/77
[2017-04-20 13:55] VITALS: Ht 175.3 cm; Wt 107.3 kg
[2017-04-20 20:00] VITALS: BP 129/73
[2017-04-21 07:20] LABS: INR 3.01 (0.85-1.17); PROTIME 30.5 SECONDS (11.6-15.0)
[2017-04-21 08:49] VITALS: BP 119/61
[2017-04-22 01:31] VITALS: BP 106/52
[2017-04-22 06:30] LABS: BASOPHILS 0.3 % (0-2); EOSINOPHILS 3.4 % (0-7); HEMATOCRIT 26.5 % (36.0-48.0); HEMOGLOBIN 7.6 g/dL (12-16); IMMATURE GRANULOCYTES 1.7 % (0-5); LYMPHOCYTES 19.8 % (15-50); MCH 25.2 pg (26.0-34.0); MCHC 28.7 g/dL (31.0-37.0); MEAN PLATELET VOLUME 9.2 fL (7.4-10.4); MONOCYTES 14.1 % (2-11); NEUTROPHILS 60.7 % (40-80); PLATELET COUNT 371 10x3/uL (130-400); RBC 3.01 10x6/uL (4.00-5.40); RDW 16.3 % (11.5-14.5); WBC 12.4 10x3/uL (4.8-10.8)
[2017-04-22 06:56] LABS: ANION GAP 10.1 mmol/L (8-16); CALCIUM 7.8 mg/dL (8.5-10.1); CARBON DIOXIDE 34.3 mmol/L (21.0-32.0); CREATININE - SERUM 1.6 mg/dL (0.6-1.3); MAGNESIUM - SERUM 1.9 mg/dL (1.8-2.4); POTASSIUM - SERUM 3.4 mmol/L (3.5-5.1)
[2017-04-22 07:15] LABS: INR 1.93 (0.85-1.17); PROTIME 21.5 SECONDS (11.6-15.0)
[2017-04-22 09:12] VITALS: BP 118/47
[2017-04-22 17:57] VITALS: BP 95/46
[2017-04-22 19:20] VITALS: BP 104/47
[2017-04-22 23:30] VITALS: BP 104/47
[2017-04-22 23:45] VITALS: BP 117/50
[2017-04-23 00:15] VITALS: BP 110/51
[2017-04-23 00:30] VITALS: BP 122/58
[2017-04-23 00:45] VITALS: BP 136/49
[2017-04-23 01:15] VITALS: BP 103/44
[2017-04-23 06:19] LABS: PROTIME 17.5 SECONDS (11.6-15.0)
[2017-04-23 06:22] LABS: INR 1.49 (0.85-1.17)
[2017-04-23 08:00] VITALS: BP 134/62
[2017-04-23 19:50] VITALS: BP 111/41
[2017-04-24 06:14] LABS: BASOPHILS 0.4 % (0-2); EOSINOPHILS 3.9 % (0-7); HEMATOCRIT 27.6 % (36.0-48.0); IMMATURE GRANULOCYTES 2.2 % (0-5); LYMPHOCYTES 14.8 % (15-50); MCV 86.3 fL (80.0-100.0); MEAN PLATELET VOLUME 9.1 fL (7.4-10.4); MONOCYTES 12.6 % (2-11); NEUTROPHILS 66.1 % (40-80); PLATELET COUNT 356 10x3/uL (130-400); WBC 12.1 10x3/uL (4.8-10.8)
[2017-04-24 06:21] LABS: INR 1.4 (0.85-1.17); PROTIME 16.7 SECONDS (11.6-15.0)
[2017-04-24 06:26] LABS: ANION GAP 12.6 mmol/L (8-16); CALCIUM 7.5 mg/dL (8.5-10.1); CARBON DIOXIDE 30.2 mmol/L (21.0-32.0); MAGNESIUM - SERUM 1.9 mg/dL (1.8-2.4); POTASSIUM - SERUM 3.8 mmol/L (3.5-5.1)
[2017-04-24 06:27] LABS: CREATININE - SERUM 1.1 mg/dL (0.6-1.3)
[2017-04-24 08:09] VITALS: BP 119/56
[2017-04-24 20:43] VITALS: BP 113/44
[2017-04-25 06:56] LABS: BASOPHILS 0.5 % (0-2); EOSINOPHILS 4.3 % (0-7); HEMATOCRIT 29.5 % (36.0-48.0); HEMOGLOBIN 8.3 g/dL (12-16); IMMATURE GRANULOCYTES 2.6 % (0-5); LYMPHOCYTES 15.7 % (15-50); MCH 24.4 pg (26.0-34.0); MCHC 28.1 g/dL (31.0-37.0); MCV 86.8 fL (80.0-100.0); MEAN PLATELET VOLUME 9.2 fL (7.4-10.4); MONOCYTES 12.1 % (2-11); NEUTROPHILS 64.8 % (40-80); PLATELET COUNT 360 10x3/uL (130-400); WBC 12.9 10x3/uL (4.8-10.8)
[2017-04-25 07:09] LABS: CALCIUM 8.7 mg/dL (8.5-10.1); CARBON DIOXIDE 32.2 mmol/L (21.0-32.0); CREATININE - SERUM 0.9 mg/dL (0.6-1.3); MAGNESIUM - SERUM 1.9 mg/dL (1.8-2.4); POTASSIUM - SERUM 4.2 mmol/L (3.5-5.1)
[2017-04-25 07:20] LABS: INR 1.5 (0.85-1.17); PROTIME 17.6 SECONDS (11.6-15.0)
[2017-04-25 09:00] VITALS: BP 110/53
[2017-04-25 23:47] VITALS: BP 108/38
[2017-04-26 06:02] LABS: BASOPHILS 0.4 % (0-2); EOSINOPHILS 4.1 % (0-7); HEMATOCRIT 30.8 % (36.0-48.0); HEMOGLOBIN 8.7 g/dL (12-16); LYMPHOCYTES 19.5 % (15-50); MCH 24.5 pg (26.0-34.0); MCHC 28.2 g/dL (31.0-37.0); MCV 86.8 fL (80.0-100.0); MEAN PLATELET VOLUME 9.2 fL (7.4-10.4); MONOCYTES 11.3 % (2-11); NEUTROPHILS 62.7 % (40-80); PLATELET COUNT 395 10x3/uL (130-400); RBC 3.55 10x6/uL (4.00-5.40); RDW 16.2 % (11.5-14.5); WBC 12.2 10x3/uL (4.8-10.8)
[2017-04-26 06:12] LABS: INR 1.42 (0.85-1.17); PROTIME 16.9 SECONDS (11.6-15.0)
[2017-04-26 06:21] LABS: ANION GAP 9.9 mmol/L (8-16); CALCIUM 8.6 mg/dL (8.5-10.1); CARBON DIOXIDE 32.5 mmol/L (21.0-32.0); POTASSIUM - SERUM 4.4 mmol/L (3.5-5.1)
[2017-04-26 09:47] VITALS: BP 135/54
[2017-04-26 20:19] VITALS: BP 129/65
[2017-04-27 07:21] LABS: INR 1.51 (0.85-1.17); PROTIME 17.7 SECONDS (11.6-15.0)
[2017-04-27 08:00] VITALS: BP 157/63
[2017-04-27 19:30] VITALS: BP 113/59
[2017-04-28 06:16] LABS: BASOPHILS 0.5 % (0-2); EOSINOPHILS 3.2 % (0-7); HEMATOCRIT 30.2 % (36.0-48.0); HEMOGLOBIN 8.6 g/dL (12-16); IMMATURE GRANULOCYTES 1.3 % (0-5); LYMPHOCYTES 21.8 % (15-50); MCH 24.4 pg (26.0-34.0); MCHC 28.5 g/dL (31.0-37.0); MCV 85.6 fL (80.0-100.0); MEAN PLATELET VOLUME 8.9 fL (7.4-10.4); MONOCYTES 13.8 % (2-11); NEUTROPHILS 59.4 % (40-80); PLATELET COUNT 336 10x3/uL (130-400); RBC 3.53 10x6/uL (4.00-5.40); RDW 16.2 % (11.5-14.5); WBC 9.8 10x3/uL (4.8-10.8)
[2017-04-28 06:28] LABS: INR 1.73 (0.85-1.17); PROTIME 19.7 SECONDS (11.6-15.0)
[2017-04-28 06:51] LABS: ANION GAP 12.4 mmol/L (8-16); CALCIUM 8.4 mg/dL (8.5-10.1); CARBON DIOXIDE 30.6 mmol/L (21.0-32.0); CREATININE - SERUM 0.9 mg/dL (0.6-1.3)
[2017-04-28 08:17] VITALS: BP 144/66
[2017-04-28 18:18] LABS: APPEARANCE CLEAR (CLEAR); BILIRUBIN NEGATIVE (NEGATIVE); COLOR YELLOW (YELLOW); GLUCOSE NEGATIVE (NEGATIVE); KETONE NEGATIVE (NEGATIVE); NITRITE NEGATIVE (NEGATIVE); PROTEIN NEGATIVE (NEGATIVE); RED CELLS - URINE 0-5 /hpf (0-5); UROBILINOGEN NORMAL (NORMAL); WHITE CELLS - URINE OCC /hpf (0-5)
[2017-04-28 18:19] LABS: EPITHELIAL CELLS 0-5 /hpf (0-5)
[2017-04-28 22:30] VITALS: BP 120/48
[2017-04-29 07:32] LABS: BASOPHILS 0.5 % (0-2); EOSINOPHILS 4.3 % (0-7); HEMATOCRIT 29.3 % (36.0-48.0); HEMOGLOBIN 8.3 g/dL (12-16); IMMATURE GRANULOCYTES 0.9 % (0-5); LYMPHOCYTES 21.3 % (15-50); MCH 24.1 pg (26.0-34.0); MCHC 28.3 g/dL (31.0-37.0); MCV 85.2 fL (80.0-100.0); MEAN PLATELET VOLUME 8.8 fL (7.4-10.4); MONOCYTES 11.2 % (2-11); NEUTROPHILS 61.8 % (40-80); PLATELET COUNT 307 10x3/uL (130-400); RBC 3.44 10x6/uL (4.00-5.40); RDW 16.2 % (11.5-14.5); WBC 8.6 10x3/uL (4.8-10.8)
[2017-04-29 07:38] LABS: INR 1.76 (0.85-1.17)
[2017-04-29 08:00] VITALS: BP 100/44
[2017-04-29 08:38] LABS: ANION GAP 13.8 mmol/L (8-16); CALCIUM 8.3 mg/dL (8.5-10.1); CARBON DIOXIDE 31.3 mmol/L (21.0-32.0); CREATININE - SERUM 0.9 mg/dL (0.6-1.3); MAGNESIUM - SERUM 1.9 mg/dL (1.8-2.4); PHOSPHOROUS 4.8 mg/dL (2.5-4.9); POTASSIUM - SERUM 4.1 mmol/L (3.5-5.1)
[2017-04-29] MEDS ORDERED: LASIX40 MG PO (09:03)
[2017-04-29] MEDS ORDERED: EFFEXOR XR75 MG PO (16:10)
== END 2017-04-29 16:20 | disposition home health service (06) | DRG 264 ==
LOC: D.REHAB 12:26
PROVIDERS: Emergency Medicine; Internal Medicine Pulmonary Disease; Otolaryngology
PROC: 2Y41X5Z Packing of Nasal Region using Packing Material (ICD-10-PCS; 2017-04-17)
PROC: 0W3Q8ZZ Control Bleeding in Respiratory Tract, Via Natural or Artificial Opening Endoscopic (ICD-10-PCS; principal; 2017-04-20 10:00)
DX: I11.0 Hypertensive heart disease with heart failure (principal); I50.33 Acute on chronic diastolic (congestive) heart failure; I35.0 Nonrheumatic aortic (valve) stenosis; E11.69 Type 2 diabetes mellitus with other specified complication

== ENCOUNTER 2017-04-17 10:20 | Emergency (ER) | payer MEDICARE, BC ==
[2017-04-16 20:55] VITALS: BMI 35.5
[~2017-04-17 10:20] MED LIST changes: +ALDACTONE25 MG PO; +APAP325 MG PO; +BUMEX 1 MG TAB1 MG PO; +BUMEX2 MG PO; +CARDIZEM60 MG PO; +COLACE100 MG PO; +COREG12.5 MG PO; +COUMADIN3 MG PO; +COZAAR25 MG PO; +K-DUR20 MEQ PO; +LINZESS145 MCG PO; +MAALOX ADVANCE355 ML PO; +MIRALAX17 GM PO; +PROTONIX40 MG PO; +ZOFRAN4 MG PO
== END 2017-04-17 12:02 ==
LOC: D.ER 10:20
DX: R04.0 Epistaxis (principal); Z79.01 Long term (current) use of anticoagulants

== ENCOUNTER 2017-04-30 19:38 | Inpatient (IN) | payer MEDICARE, BC ==
[~2017-04-30] VITALS: Ht 175.3 cm; Wt 104.9 kg
--- NOTE | ~2017-04-30 | CN ---
PATIENT NAME:ADRY HENDRICKS MEDICAL RECORD: [id number] : 47 LOCATION:D.MS Castañeda2220 ADMIT DATE: 04/30/17 ACCOUNT: [id number] CONSULTING PHYSICIAN: MELONIE CONTRERAS MD REFERRING PHYSICIAN: ERASMO CONNOR MD DATE OF CONSULTATION: 05/05/2017 CONSULT REQUESTING PHYSICIAN: John Baker MD REASON FOR CONSULTATION: Congestive heart failure and possible pneumonia. HISTORY OF PRESENT ILLNESS: Ms. Hendricks is a 71-year-old very pleasant lady, very well known to me. The patient was just discharged from rehab after epistaxis, pneumonia, and congestive heart failure and status post aortic valve replacement. According to the patient, she went home, she had worsening shortness of breath and worsening swelling of the lower extremities. Her diuretics were head because the patient was getting prerenal, but she has worsening swelling of the lower extremities without diuretic and shortness of breath. The patient denies any fever or chills, no night sweats. REVIEW OF SYSTEMS: As in history of present illness. PAST MEDICAL HISTORY: 1. Congestive heart failure. 2. Atrial fibrillation. 3. Aortic valve replacement. 4. Diabetes mellitus. 5. History of CVA. 6. Hypertension. 7. Coronary artery disease. 8. Pulmonary hypertension, most likely secondary to aortic valve stenosis. PAST SURGICAL HISTORY: 1. She is status post aortic valve replacement. 2. She has a nasal package and cauterization for the epistaxis. ALLERGIES: She is allergic to SUCCINYLCHOLINE, PENICILLIN, FLU VACCINE. MEDICATIONS: Lasix IV, Levaquin IV, cefepime IV. Her other medication is reviewed. PERSONAL AND SOCIAL HISTORY: The patient is a nonsmoker, nondrinker. FAMILY HISTORY: Noncontributory. PHYSICAL EXAMINATION: GENERAL: Now, the patient is lying comfortably in bed. She is not in acute distress. VITAL SIGNS: The blood pressure is 121/51, pulse is 86, respirations 16, temperature 98.1, and SPO2 is 99% on room air. HEENT: Conjunctivae is pink, sclerae nonicteric. NECK: Supple, no JVD. CHEST: Excursion is minimal on both sides. Bilateral crackles. No wheezing. HEART: Rhythm regular. Normal heart sound. There is a II/ systolic murmur. ABDOMEN: Soft. Bowel sounds present. No hepatosplenomegaly. CONSULT REPORT [id number] ADRY HENDRICKS RECTAL: Deferred. EXTREMITIES: No cyanosis, no clubbing, no pedal edema. SKIN: Warm, normal turgor. CENTRAL NERVOUS SYSTEM: The patient is awake and alert. EXTREMITIES: There is 3+ pedal edema. IMAGING: Chest radiograph: There are increased interstitial markings bilaterally. LABORATORY DATA: CBC: WBC 7.8, hemoglobin 8.2, hematocrit 29.1, and platelet count 262. Chemistry: Sodium 139, potassium 3.9, BUN is 25, creatinine 0.7. ABG: The pH was 7.51, pCO2 was 36.3, the pO2 was 65, bicarbonate is 29.1. IMPRESSION: 1. Cqsvl-no-derzahp hypoxic respiratory failure. 2. Pneumonia, most likely hospital-acquired pneumonia with the patient's recent hospitalization, possible aspiration at the time of epistaxis. 3. Pulmonary edema. 4. Congestive heart failure consistent with chronic diastolic dysfunction. 5. Severe aortic stenosis, status post valve replacement, on anticoagulation for valve replacement. 6. History of atrial fibrillation. RECOMMENDATION: 1. Continue Lasix. I will add Zaroxolyn. 2. Continue cefepime and Levaquin. 3. Coumadin for PT/INR between 2-2.5. Supplemental oxygen as required. Dr. Baker thank you for involving me in the care of Ms. Hendricks. TRANSINT:[id number] Voice Confirmation ID: [id number] DOCUMENT ID: [id number] MELONIE CONTRERAS MD at 1340 CC: JOHN BAKER MD [id number] DICTATION DATE: 05/05/17 1544 TRANSMISSION WORKER: 05/05/17 1618 ADM IN [facility] [address] [place] [address]
--- NOTE | ~2017-04-30 | CN ---
PATIENT NAME:ADRY HENDRICKS MEDICAL RECORD: [id number] : 47 LOCATION:D.MS Castañeda2220 ADMIT DATE: 04/30/17 ACCOUNT: [id number] CONSULTING PHYSICIAN: TIFFANI LEYVA MD REFERRING PHYSICIAN: ERASMO CONNOR MD DATE OF CONSULTATION: 05/01/2017 Cardiology Consultation DIAGNOSES: 1. Respiratory failure. 2. Recent aspiration pneumonia. 3. Hypotension. 4. Recent aortic valve replacement and tricuspid valve repair. 5. Coronary artery disease. 6. Atrial fibrillation. 7. Hyperlipidemia. 8. Diabetes. 9. History of hypertension. 10. Anemia. 11. Coumadin anticoagulation. HISTORY OF PRESENT ILLNESS: Ms. Hendricks is status post aortic valve replacement as well as tricuspid valve repair at [facility]. She was at home, became weak and presyncopal, was found to have systolic blood pressure in the 60s. She was transferred here, put on dopamine. She is on multiple blood pressure medications including diltiazem, Coreg, and losartan. She has a history of atrial fibrillation. She is on warfarin for this. She has a hemoglobin of 8.1. She remains in atrial fibrillation. She is now on dopamine, systolic blood pressures in the 100 range, her rhythm is atrial fibrillation, heart rate is in the 70 range. Echocardiogram was performed, aortic valve was functioning normally. There is moderate to severe tricuspid regurgitation, moderate mitral regurgitation, and pulmonary systolic pressure is significantly elevated, estimated at 81 mmHg on the echo. Her chest x-ray is compatible with pulmonary edema. PHYSICAL EXAMINATION: GENERAL APPEARANCE: Well-nourished, well-developed, appears stated age. Level of distress, comfortable. PSYCHIATRIC: Mental status, alert, normal affect. Orientation, oriented to time, place and person. EYES: Lids and conjunctiva, noninjected. No discharge, no pallor. ENT: Lips, teeth, gums, normal dentition. Oropharynx, no cyanosis, no pallor. NECK: Carotid arteries, bilateral normal upstroke, no bruits, no thrills. JUGULAR VEINS: No jugular venous pressure or distention. CERVICAL LYMPH NODES: Nontender, nonenlarged. THYROID: Not enlarged. Nontender. No nodules. LUNGS: Respiratory effort, unlabored. CHEST: Normal curvature. No thoracic deformity. No chest wall tenderness. Percussion, resonant. Auscultation, clear. No wheezes, no rales, no rhonchi. CARDIOVASCULAR: Precordial exam, nondisplaced. No heaves or pericardial thrills. Rate and rhythm, regular. Heart sounds, normal S1, normal S2. No S3, no gallop, no rub. Systolic murmur, not heard. Diastolic murmur, not heard. EXTREMITIES: No cyanosis, no edema. Peripheral pulses, full and equal in all extremities, except as noted. No bruits appreciated. CONSULT REPORT [id number] ADRY HENDRICKS ABDOMEN: Soft, nondistended. Normal aorta. No bruit. Nontender. No masses. Liver, nontender, no hepatomegaly. Spleen, nontender, no splenomegaly. MUSCULOSKELETAL: No joint tenderness. No joint swelling. No erythema. NEUROLOGICAL: Normal gait, normal strength, normal tone. SKIN: Warm and dry. OVERALL IMPRESSION: 1. Valvular heart disease. She still has significant tricuspid regurgitation and mitral regurgitation as well as elevated pulmonary systolic pressures. This will of course contribute to her fluid overload, pulmonary edema state and treatment for this at this point is diuresis with her normal ejection fraction, no need for inotropic support. 2. Atrial fibrillation. This is well controlled, but due to her low blood pressure, we will have to hold her antihypertensives, may add digoxin for rate control to avoid the diltiazem and carvedilol. We would definitely hold the losartan at this point. We would use all her blood pressure medications for AV blocking medications as well. Other than the echocardiogram that has already been done, no other cardiac testing is necessary and only supportive treatment for the blood pressure and treatment for the rate of the atrial fibrillation as her blood pressure tolerates it. TRANSINT:[id number] Voice Confirmation ID: [id number] DOCUMENT ID: [id number] TIFFANI LEYVA MD at 1202 CC: [id number] DICTATION DATE: 05/01/17 1543 SURGICAL NURSE PRACTITIONER: 05/01/17 1615 [place] [address]
--- NOTE | ~2017-04-30 | EC ---
PATIENT:ADRY HIGGINS DATE OF SERVICE: 04/30/17 SEX: F MEDICAL RECORD: [id number] DATE OF : 47 LOCATION:D.MS Castañeda222 AGE OF PATIENT: 71 ADMISSION DATE: 04/30/17 REFERRING PHYSICIAN: INTERPRETING PHYSICIAN: TIFFANI RICE MD ECHOCARDIOGRAM REPORT ECHO CHARGES 4 ECHO COMPLETE CLINICAL DIAGNOSIS: CHF/RECENT CABG/AVR/TV REPAIR ECHOCARDIOGRAPHIC MEASUREMENTS (adult normal given) AC root (d.<3.7cm) 4.1 cm LV Septum d (<1.2 cm> 2.0 cm Valve Excursion 1.5 cm LV Septum (systole) 2.3 cm Left Atria (s.<4.0cm> 5.4 cm LVPW d(<1.2cm) 1.9 cm RV (d.<2.3cm) 4.4 cm LVPW (sytole) 2.0 cm LV diastole(<5.6CM) 5.3 cm MV E-F(>70mm/sec) cm LV systole 2.8 cm LVOT Diameter 1.8 cm MV exc.(>10mm) 1.2 cm Est.ejection fraction (50-75%) % Pericardial Effusion N DOPPLER: LVIT cm/sec A 49.0 cm/sec E 139 cm/sec LA cm/sec RVSP 81 mmHg LVOT 105 cm/sec AOP1/2T m/s Asc. Ao 242 cm/sec RVOT 90 cm/sec RA cm/sec PA 132 cm/sec AV Gradient Peak 23.47mmHg AV Mean 12.10mmHg AV Area 1.5 cm MV Gradient Peak 13.00mmHg MV Mean 3.71 mmHg MV Area cm COMMENTS: Manufacturing Software Engineer: Renay CASTANEDA Street Light Mechanic: 1 Dr. Rice TAPE# PACS DATE OF SERVICE: 05/01/2017 Echocardiogram FINDINGS: 1. Left ventricular chamber size is within normal limits. Left ventricular systolic function is normal. Overall ejection fraction estimated at 55%. 2. Left ventricular hypertrophy is present, concentric with no evidence of outflow tract hypertrophy. 3. Left atrium is markedly enlarged at 5.4 cm. Right atrium and right ECHOCARDIOGRAM REPORT [id number] ADRY HIGGINS ventricular chamber sizes are as well enlarged. 4. Valvular structures: Aortic valve was replaced with a tissue prosthesis with normal structure and function in its position. The remaining valvular structures have normal structure and motion. 5. Doppler interrogation reveals mild aortic insufficiency, xdhn-uu-dgirtzum mitral regurgitation, severe tricuspid regurgitation, no other valvular insufficiency or stenosis and pulmonary systolic pressure is elevated, estimated at 81 mmHg. 6. No evidence of pericardial effusion or left ventricular thrombus. TRANSINT:[id number] Voice Confirmation ID: [id number] DOCUMENT ID: [id number] TIFFANI RICE MD at 1202 CC: [id number] DICTATION DATE: 05/01/17 1535 SHEAR SCRAPMAN: 05/01/17 1559 ADM IN [facility] [id number]
[~2017-04-30 19:38] MED LIST changes: +EFFEXOR XR75 MG PO; +LASIX40 MG PO
[2017-04-30 20:56] LABS: BASOPHILS 0.2 % (0-2); HEMATOCRIT 29.1 % (36.0-48.0); HEMOGLOBIN 8.4 g/dL (12-16); IMMATURE GRANULOCYTES 0.7 % (0-5); LYMPHOCYTES 7.9 % (15-50); MCH 24.5 pg (26.0-34.0); MCHC 28.9 g/dL (31.0-37.0); MCV 84.8 fL (80.0-100.0); MEAN PLATELET VOLUME 9.1 fL (7.4-10.4); MONOCYTES 5.9 % (2-11); NEUTROPHILS 83.3 % (40-80); PLATELET COUNT 324 10x3/uL (130-400); RBC 3.43 10x6/uL (4.00-5.40); RDW 16.3 % (11.5-14.5); WBC 17.7 10x3/uL (4.8-10.8)
[2017-04-30 21:03] LABS: PROTIME 22.1 SECONDS (11.6-15.0)
[2017-04-30 21:04] LABS: D-DIMER-QUANTITATIVE 1.46 ug/mLFEU (0.20-0.54)
[2017-04-30 21:06] LABS: ALBUMIN 2.7 g/dL (3.4-5.0); ALKALINE PHOSPHATASE 54 U/L (46-116); ALT (SGPT) 16 U/L (10-68); BILIRUBIN - TOTAL 0.81 mg/dL (0.2-1.3); CALC OSMOLALITY 281 mosm/kg (275-300); CALCIUM 8.5 mg/dL (8.5-10.1); CARBON DIOXIDE 30.9 mmol/L (21.0-32.0); CHLORIDE - SERUM 99 mmol/L (98-107); CREATININE - SERUM 1.3 mg/dL (0.6-1.3); GLUCOSE 209 mg/dL (74-106); POTASSIUM - SERUM 4.1 mmol/L (3.5-5.1); PROTEIN - SERUM 6.7 g/dL (6.4-8.2); SODIUM 136 mmol/L (136-145); UREA NITROGEN 25 mg/dL (7-18); eGFR NON AFRICAN AMERICAN 43 mL/min (90-120)
[2017-04-30 21:13] LABS: CREATINE KINASE 12 UL (21-215); PRO BNP 1742 pg/mL (0-125)
[2017-04-30 21:23] LABS: TROPONIN-I < 0.017 ng/mL (0.000-0.060)
[2017-04-30 22:02] LABS: APPEARANCE CLEAR (CLEAR); COLOR YELLOW (YELLOW)
[2017-04-30 22:03] LABS: BILIRUBIN NEGATIVE (NEGATIVE); GLUCOSE NEGATIVE (NEGATIVE); KETONE NEGATIVE (NEGATIVE); NITRITE NEGATIVE (NEGATIVE); PROTEIN NEGATIVE (NEGATIVE); UROBILINOGEN NORMAL (NORMAL)
[2017-04-30 22:06] LABS: BACTERIA FEW /hpf (NONE SEEN)
[2017-05-01] VITALS (51 sets, daily range): BP systolic 82–130; BP diastolic 42–72; Ht 175.3 cm; Wt 104.9 kg
[2017-05-01 04:24] LABS: BASOPHILS 0.2 % (0-2); EOSINOPHILS 0.5 % (0-7); HEMOGLOBIN 8.1 g/dL (12-16); IMMATURE GRANULOCYTES 0.7 % (0-5); MCH 24.1 pg (26.0-34.0); MCHC 28.9 g/dL (31.0-37.0); MCV 83.3 fL (80.0-100.0); MEAN PLATELET VOLUME 9.1 fL (7.4-10.4); MONOCYTES 9.9 % (2-11); NEUTROPHILS 80.7 % (40-80); PLATELET COUNT 277 10x3/uL (130-400); RBC 3.36 10x6/uL (4.00-5.40); WBC 13.3 10x3/uL (4.8-10.8)
[2017-05-01 04:55] LABS: CALC OSMOLALITY 282 mosm/kg (275-300); CALCIUM 8.3 mg/dL (8.5-10.1); CARBON DIOXIDE 28.8 mmol/L (21.0-32.0); CHLORIDE - SERUM 99 mmol/L (98-107); CKMB 0.5 U/L (0.0-3.6); CREATINE KINASE 15 UL (21-215); CREATININE - SERUM 1.3 mg/dL (0.6-1.3); MAGNESIUM - SERUM 1.9 mg/dL (1.8-2.4); POTASSIUM - SERUM 4.3 mmol/L (3.5-5.1); PRO BNP 1491 pg/mL (0-125); SODIUM 137 mmol/L (136-145); TROPONIN-I < 0.017 ng/mL (0.000-0.060); UREA NITROGEN 29 mg/dL (7-18); eGFR NON AFRICAN AMERICAN 43 mL/min (90-120)
[2017-05-01 04:58] LABS: GLUCOSE 145 mg/dL (74-106)
[2017-05-02] VITALS (24 sets, daily range): BP systolic 89–131; BP diastolic 45–87
[2017-05-02 05:52] LABS: BASOPHILS 0.2 % (0-2); EOSINOPHILS 5.7 % (0-7); HEMATOCRIT 27.7 % (36.0-48.0); IMMATURE GRANULOCYTES 0.7 % (0-5); LYMPHOCYTES 19.7 % (15-50); MCH 24.2 pg (26.0-34.0); MCHC 28.9 g/dL (31.0-37.0); MCV 83.7 fL (80.0-100.0); MEAN PLATELET VOLUME 9.1 fL (7.4-10.4); MONOCYTES 11.4 % (2-11); NEUTROPHILS 62.3 % (40-80); PLATELET COUNT 278 10x3/uL (130-400); RBC 3.31 10x6/uL (4.00-5.40); RDW 16.4 % (11.5-14.5)
[2017-05-02 06:03] LABS: WBC 8.9 10x3/uL (4.8-10.8)
[2017-05-02 06:04] LABS: ALBUMIN 2.5 g/dL (3.4-5.0); ANION GAP 10.8 mmol/L (8-16); BILIRUBIN - TOTAL 0.5 mg/dL (0.2-1.3); CALCIUM 8.1 mg/dL (8.5-10.1); CARBON DIOXIDE 29.2 mmol/L (21.0-32.0); CREATININE - SERUM 1.1 mg/dL (0.6-1.3); PROTEIN - SERUM 6.5 g/dL (6.4-8.2)
[2017-05-03] VITALS (16 sets, daily range): BP systolic 101–131; BP diastolic 49–88
[2017-05-03 03:06] LABS: BASOPHILS 0.5 % (0-2); EOSINOPHILS 6.9 % (0-7); HEMOGLOBIN 7.7 g/dL (12-16); IMMATURE GRANULOCYTES 0.5 % (0-5); MCH 23.6 pg (26.0-34.0); MCHC 28.5 g/dL (31.0-37.0); MCV 82.8 fL (80.0-100.0); MEAN PLATELET VOLUME 8.6 fL (7.4-10.4); MONOCYTES 14.4 % (2-11); NEUTROPHILS 52.7 % (40-80); PLATELET COUNT 240 10x3/uL (130-400); RBC 3.26 10x6/uL (4.00-5.40); RDW 16.3 % (11.5-14.5); WBC 8.1 10x3/uL (4.8-10.8)
[2017-05-03 03:14] LABS: INR 2.62 (0.85-1.17); PROTIME 27.4 SECONDS (11.6-15.0)
[2017-05-03 03:23] LABS: ALBUMIN 2.5 g/dL (3.4-5.0); BILIRUBIN - TOTAL 0.43 mg/dL (0.2-1.3); CALCIUM 8.1 mg/dL (8.5-10.1); PROTEIN - SERUM 6.3 g/dL (6.4-8.2)
[2017-05-04 00:57] VITALS: BP 139/66
[2017-05-04 05:03] VITALS: BP 130/64
[2017-05-04 06:04] LABS: BASOPHILS 0.6 % (0-2); EOSINOPHILS 6.9 % (0-7); HEMATOCRIT 28.9 % (36.0-48.0); HEMOGLOBIN 8.3 g/dL (12-16); IMMATURE GRANULOCYTES 0.5 % (0-5); LYMPHOCYTES 19.3 % (15-50); MCH 24.1 pg (26.0-34.0); MCHC 28.7 g/dL (31.0-37.0); MCV 83.8 fL (80.0-100.0); MEAN PLATELET VOLUME 9.2 fL (7.4-10.4); NEUTROPHILS 58.7 % (40-80); PLATELET COUNT 280 10x3/uL (130-400); RBC 3.45 10x6/uL (4.00-5.40); RDW 16.5 % (11.5-14.5); WBC 7.8 10x3/uL (4.8-10.8)
[2017-05-04 06:16] LABS: INR 2.1 (0.85-1.17)
[2017-05-04 06:18] LABS: ALBUMIN 2.5 g/dL (3.4-5.0); ALKALINE PHOSPHATASE 46 U/L (46-116); ALT (SGPT) 17 U/L (10-68); CALC OSMOLALITY 284 mosm/kg (275-300); CALCIUM 8.3 mg/dL (8.5-10.1); CARBON DIOXIDE 28.7 mmol/L (21.0-32.0); CHLORIDE - SERUM 103 mmol/L (98-107); CREATININE - SERUM 0.8 mg/dL (0.6-1.3); GLUCOSE 122 mg/dL (74-106); POTASSIUM - SERUM 3.7 mmol/L (3.5-5.1); PROTEIN - SERUM 6.5 g/dL (6.4-8.2); SODIUM 140 mmol/L (136-145); UREA NITROGEN 27 mg/dL (7-18); eGFR NON AFRICAN AMERICAN 75 mL/min (90-120)
[2017-05-04 07:02] VITALS: BP 175/61
[2017-05-04 11:09] VITALS: BP 127/55
[2017-05-04 15:00] VITALS: BP 168/51
[2017-05-04 20:00] VITALS: BP 121/95
[2017-05-05 04:00] VITALS: BP 115/60
[2017-05-05] MEDS ORDERED: ATIVAN0.5 MG PO (05:07)
[2017-05-05 06:21] LABS: BASOPHILS 0.5 % (0-2); EOSINOPHILS 8.2 % (0-7); HEMATOCRIT 29.1 % (36.0-48.0); HEMOGLOBIN 8.2 g/dL (12-16); IMMATURE GRANULOCYTES 0.5 % (0-5); LYMPHOCYTES 20.4 % (15-50); MCH 23.5 pg (26.0-34.0); MCHC 28.2 g/dL (31.0-37.0); MCV 83.4 fL (80.0-100.0); MEAN PLATELET VOLUME 8.9 fL (7.4-10.4); MONOCYTES 12.1 % (2-11); NEUTROPHILS 58.3 % (40-80); PLATELET COUNT 262 10x3/uL (130-400); RBC 3.49 10x6/uL (4.00-5.40); RDW 16.1 % (11.5-14.5); WBC 7.8 10x3/uL (4.8-10.8)
[2017-05-05 06:37] LABS: INR 1.76 (0.85-1.17)
[2017-05-05 06:54] LABS: ALBUMIN 2.7 g/dL (3.4-5.0); ALKALINE PHOSPHATASE 49 U/L (46-116); ALT (SGPT) 15 U/L (10-68); BILIRUBIN - TOTAL 0.47 mg/dL (0.2-1.3); CALC OSMOLALITY 282 mosm/kg (275-300); CALCIUM 8.3 mg/dL (8.5-10.1); CARBON DIOXIDE 28.9 mmol/L (21.0-32.0); CHLORIDE - SERUM 103 mmol/L (98-107); CREATININE - SERUM 0.7 mg/dL (0.6-1.3); GLUCOSE 118 mg/dL (74-106); POTASSIUM - SERUM 3.9 mmol/L (3.5-5.1); PROTEIN - SERUM 6.7 g/dL (6.4-8.2); SODIUM 139 mmol/L (136-145); UREA NITROGEN 25 mg/dL (7-18); eGFR NON AFRICAN AMERICAN 88 mL/min (90-120)
[2017-05-05 07:00] VITALS: BP 119/61
[2017-05-05 11:04] VITALS: BP 121/51
[2017-05-05 15:15] VITALS: BP 101/65
[2017-05-05 20:00] VITALS: BP 135/54
[2017-05-06 04:00] VITALS: BP 124/62
[2017-05-06 06:37] LABS: BASOPHILS 0.3 % (0-2); EOSINOPHILS 6.9 % (0-7); HEMATOCRIT 31.3 % (36.0-48.0); HEMOGLOBIN 8.9 g/dL (12-16); IMMATURE GRANULOCYTES 0.7 % (0-5); LYMPHOCYTES 17.7 % (15-50); MCH 23.8 pg (26.0-34.0); MCHC 28.4 g/dL (31.0-37.0); MCV 83.7 fL (80.0-100.0); NEUTROPHILS 62.4 % (40-80); PLATELET COUNT 300 10x3/uL (130-400); RBC 3.74 10x6/uL (4.00-5.40); RDW 16.5 % (11.5-14.5); WBC 8.7 10x3/uL (4.8-10.8)
[2017-05-06 07:07] LABS: INR 1.87 (0.85-1.17); PROTIME 20.9 SECONDS (11.6-15.0)
[2017-05-06 07:35] LABS: ALBUMIN 2.8 g/dL (3.4-5.0); ANION GAP 11.9 mmol/L (8-16); BILIRUBIN - TOTAL 0.68 mg/dL (0.2-1.3); CALCIUM 8.6 mg/dL (8.5-10.1); POTASSIUM - SERUM 3.9 mmol/L (3.5-5.1); PROTEIN - SERUM 7.1 g/dL (6.4-8.2)
[2017-05-06 07:40] LABS: CREATININE - SERUM 0.9 mg/dL (0.6-1.3)
[2017-05-06 13:31] VITALS: BP 100/45
[2017-05-06 20:00] VITALS: BP 115/51
[2017-05-07 04:00] VITALS: BP 126/62
[2017-05-07 05:21] LABS: INR 2.01 (0.85-1.17); PROTIME 22.2 SECONDS (11.6-15.0)
[2017-05-07 08:55] VITALS: BP 102/40
[2017-05-07 11:08] LABS: BASOPHILS 0.4 % (0-2); EOSINOPHILS 7.9 % (0-7); HEMATOCRIT 30.4 % (36.0-48.0); HEMOGLOBIN 8.5 g/dL (12-16); IMMATURE GRANULOCYTES 0.7 % (0-5); LYMPHOCYTES 28.8 % (15-50); MCH 23.5 pg (26.0-34.0); MEAN PLATELET VOLUME 9.7 fL (7.4-10.4); MONOCYTES 13.6 % (2-11); NEUTROPHILS 48.6 % (40-80); PLATELET COUNT 282 10x3/uL (130-400); RBC 3.62 10x6/uL (4.00-5.40); RDW 16.7 % (11.5-14.5); WBC 7.2 10x3/uL (4.8-10.8)
[2017-05-07 11:16] LABS: ALBUMIN 2.8 g/dL (3.4-5.0); BILIRUBIN - TOTAL 0.48 mg/dL (0.2-1.3); CALCIUM 8.4 mg/dL (8.5-10.1); CARBON DIOXIDE 31.9 mmol/L (21.0-32.0); POTASSIUM - SERUM 3.9 mmol/L (3.5-5.1); PROTEIN - SERUM 6.5 g/dL (6.4-8.2)
[2017-05-07 11:45] VITALS: BP 124/52
[2017-05-07 15:42] VITALS: BP 123/53
[2017-05-07 20:00] VITALS: BP 134/65
[2017-05-08] VITALS (11 sets, daily range): BP systolic 101–139; BP diastolic 49–65
[2017-05-08 05:26] LABS: BASOPHILS 0.4 % (0-2); EOSINOPHILS 10.6 % (0-7); HEMATOCRIT 28.7 % (36.0-48.0); HEMOGLOBIN 8.3 g/dL (12-16); IMMATURE GRANULOCYTES 0.4 % (0-5); LYMPHOCYTES 27.4 % (15-50); MCH 23.3 pg (26.0-34.0); MCHC 28.9 g/dL (31.0-37.0); MCV 80.6 fL (80.0-100.0); MEAN PLATELET VOLUME 9.1 fL (7.4-10.4); MONOCYTES 13.6 % (2-11); NEUTROPHILS 47.6 % (40-80); PLATELET COUNT 253 10x3/uL (130-400); RBC 3.56 10x6/uL (4.00-5.40); RDW 16.6 % (11.5-14.5); WBC 7.4 10x3/uL (4.8-10.8)
[2017-05-08 05:30] LABS: INR 2.26 (0.85-1.17); PROTIME 24.3 SECONDS (11.6-15.0)
[2017-05-08 05:36] LABS: ALBUMIN 2.6 g/dL (3.4-5.0); ANION GAP 11.5 mmol/L (8-16); BILIRUBIN - TOTAL 0.48 mg/dL (0.2-1.3); CALCIUM 8.3 mg/dL (8.5-10.1); CREATININE - SERUM 1.1 mg/dL (0.6-1.3); POTASSIUM - SERUM 3.5 mmol/L (3.5-5.1); PROTEIN - SERUM 6.6 g/dL (6.4-8.2)
[2017-05-08 19:02] LABS: PRO BNP 1170 pg/mL (0-125); TROPONIN-I < 0.017 ng/mL (0.000-0.060)
[2017-05-08 19:34] LABS: CKMB 0.4 U/L (0.0-3.6); CREATINE KINASE 14 UL (21-215)
[2017-05-09] VITALS (16 sets, daily range): BP systolic 101–138; BP diastolic 38–68
[2017-05-09 00:51] LABS: CKMB 0.7 U/L (0.0-3.6); CREATINE KINASE 18 UL (21-215)
[2017-05-09 00:52] LABS: TROPONIN-I < 0.017 ng/mL (0.000-0.060)
[2017-05-09 06:02] LABS: BASOPHILS 0.6 % (0-2); EOSINOPHILS 11.2 % (0-7); IMMATURE GRANULOCYTES 0.3 % (0-5); LYMPHOCYTES 27.6 % (15-50); MCH 24.6 pg (26.0-34.0); MCHC 30.6 g/dL (31.0-37.0); MCV 80.3 fL (80.0-100.0); MEAN PLATELET VOLUME 9.4 fL (7.4-10.4); MONOCYTES 14.4 % (2-11); NEUTROPHILS 45.9 % (40-80); PLATELET COUNT 234 10x3/uL (130-400); RBC 4.11 10x6/uL (4.00-5.40); RDW 16.1 % (11.5-14.5); WBC 7.9 10x3/uL (4.8-10.8)
[2017-05-09 06:04] LABS: HEMOGLOBIN 10.1 g/dL (12-16)
[2017-05-09 06:10] LABS: INR 2.21 (0.85-1.17); PROTIME 23.9 SECONDS (11.6-15.0)
[2017-05-09 06:33] LABS: ALBUMIN 2.7 g/dL (3.4-5.0); ALKALINE PHOSPHATASE 44 U/L (46-116); ALT (SGPT) 15 U/L (10-68); CALC OSMOLALITY 288 mosm/kg (275-300); CALCIUM 8.4 mg/dL (8.5-10.1); CHLORIDE - SERUM 101 mmol/L (98-107); CKMB 0.5 U/L (0.0-3.6); CREATINE KINASE 17 UL (21-215); GLUCOSE 99 mg/dL (74-106); POTASSIUM - SERUM 3.2 mmol/L (3.5-5.1); PROTEIN - SERUM 6.7 g/dL (6.4-8.2); SODIUM 142 mmol/L (136-145); TROPONIN-I 0.018 ng/mL (0.000-0.060); UREA NITROGEN 30 mg/dL (7-18); eGFR NON AFRICAN AMERICAN 75 mL/min (90-120)
[2017-05-09 06:40] LABS: CREATININE - SERUM 0.8 mg/dL (0.6-1.3)
[2017-05-10 05:19] VITALS: BP 119/62
[2017-05-10 05:37] LABS: BASOPHILS 0.4 % (0-2); EOSINOPHILS 9.7 % (0-7); HEMATOCRIT 32.9 % (36.0-48.0); HEMOGLOBIN 9.8 g/dL (12-16); IMMATURE GRANULOCYTES 0.5 % (0-5); LYMPHOCYTES 25.1 % (15-50); MCH 24.3 pg (26.0-34.0); MCHC 29.8 g/dL (31.0-37.0); MCV 81.4 fL (80.0-100.0); MEAN PLATELET VOLUME 9.7 fL (7.4-10.4); MONOCYTES 13.7 % (2-11); NEUTROPHILS 50.6 % (40-80); PLATELET COUNT 243 10x3/uL (130-400); RBC 4.04 10x6/uL (4.00-5.40); RDW 16.4 % (11.5-14.5); WBC 9.6 10x3/uL (4.8-10.8)
[2017-05-10 05:48] LABS: INR 2.4 (0.85-1.17); PROTIME 25.5 SECONDS (11.6-15.0)
[2017-05-10 05:58] LABS: ALBUMIN 2.8 g/dL (3.4-5.0); ANION GAP 13.5 mmol/L (8-16); BILIRUBIN - TOTAL 0.7 mg/dL (0.2-1.3); CALCIUM 8.4 mg/dL (8.5-10.1); CARBON DIOXIDE 31.2 mmol/L (21.0-32.0); CREATININE - SERUM 0.9 mg/dL (0.6-1.3); POTASSIUM - SERUM 3.7 mmol/L (3.5-5.1); PROTEIN - SERUM 6.3 g/dL (6.4-8.2)
[2017-05-10 11:52] VITALS: BP 105/51
[2017-05-10 15:29] VITALS: BP 105/46
[2017-05-10 20:55] VITALS: BP 115/68
[2017-05-11 04:35] LABS: BASOPHILS 0.5 % (0-2); EOSINOPHILS 11.6 % (0-7); HEMOGLOBIN 9.8 g/dL (12-16); IMMATURE GRANULOCYTES 0.6 % (0-5); LYMPHOCYTES 27.9 % (15-50); MCH 24.1 pg (26.0-34.0); MCHC 29.7 g/dL (31.0-37.0); MCV 81.1 fL (80.0-100.0); MEAN PLATELET VOLUME 9.2 fL (7.4-10.4); MONOCYTES 14.3 % (2-11); NEUTROPHILS 45.1 % (40-80); PLATELET COUNT 225 10x3/uL (130-400); RBC 4.07 10x6/uL (4.00-5.40); RDW 16.7 % (11.5-14.5); WBC 8.2 10x3/uL (4.8-10.8)
[2017-05-11 04:46] LABS: ALBUMIN 2.7 g/dL (3.4-5.0); ANION GAP 12.8 mmol/L (8-16); BILIRUBIN - TOTAL 0.65 mg/dL (0.2-1.3); CALCIUM 8.3 mg/dL (8.5-10.1); CARBON DIOXIDE 31.4 mmol/L (21.0-32.0); CREATININE - SERUM 0.9 mg/dL (0.6-1.3); POTASSIUM - SERUM 3.2 mmol/L (3.5-5.1); PROTEIN - SERUM 6.6 g/dL (6.4-8.2)
[2017-05-11 04:49] LABS: INR 2.84 (0.85-1.17); PROTIME 29.1 SECONDS (11.6-15.0)
[2017-05-11 05:40] VITALS: BP 117/15
[2017-05-11 08:39] VITALS: BP 113/57
[2017-05-11 12:05] VITALS: BP 112/61
[2017-05-11] MEDS ORDERED: LASIX20 MG PO (14:33)
[2017-05-11] MEDS ORDERED: Zaroxolyn PO (14:36)
== END 2017-05-11 15:53 | disposition home health service (06) | DRG 291 ==
LOC: D.ER 19:38 → D.ICU 23:17 → D.EDHOLD 23:17 → D.MS 23:17 → D.ICU 23:50 → D.MS 05-03 20:53
PROVIDERS: Family Medicine; Family Medicine Adult Medicine; Internal Medicine Cardiovascular Disease; Internal Medicine Nephrology
DX: I11.0 Hypertensive heart disease with heart failure (principal); J18.9 Pneumonia, unspecified organism; N39.0 Urinary tract infection, site not specified; N17.9 Acute kidney failure, unspecified; I50.33 Acute on chronic diastolic (congestive) heart failure; I48.2 Chronic atrial fibrillation; I95.9 Hypotension, unspecified; Z79.01 Long term (current) use of anticoagulants; I25.10 Atherosclerotic heart disease of native coronary artery without angina pectoris; K59.00 Constipation, unspecified; G47.33 Obstructive sleep apnea (adult) (pediatric); I35.0 Nonrheumatic aortic (valve) stenosis; D64.9 Anemia, unspecified

== ENCOUNTER 2017-06-08 14:23 | Inpatient (IN) | payer MEDICARE, BC ==
[~2017-06-08] VITALS: Ht 175.3 cm; Wt 107.5 kg
--- NOTE | ~2017-06-08 | CN ---
PATIENT NAME:ADRY HENDRICKS MEDICAL RECORD: [id number] : 47 LOCATION:D. D.2135 ADMIT DATE: 06/08/17 ACCOUNT: [id number] CONSULTING PHYSICIAN: MELONIE CONTRERAS MD REFERRING PHYSICIAN: ERASMO CONNOR MD DATE OF CONSULTATION: 06/19/2017 CONSULT REQUESTING PHYSICIAN: Dr. Munguia. REASON FOR CONSULTATION: Dyspnea on exertion. HISTORY OF PRESENT ILLNESS: Ms. Hendricks is a 71-year-old female who has a history of congestive heart failure, aortic valve stenosis. She was admitted with pulmonary edema and a flare of congestive heart failure. Now, she is feeling a bit better, but she is still having shortness of breath with mild exertion. There are coughs without much sputum production. There is no orthopnea, no PND. There are no fever and chill, no night sweats. REVIEW OF SYSTEMS: As in history of present illness. PAST MEDICAL HISTORY: 1. Congestive heart failure. 2. Atrial fibrillation. 3. Severe aortic valve stenosis. 4. Diabetes mellitus. 5. History of cerebrovascular accident. 6. Hypertension. 7. Coronary artery disease. 8. Pulmonary hypertension secondary to aortic wall stenosis. PAST SURGICAL HISTORY: 1. Status post aortic valve replacement. 2. History of epistaxis and nasal packing. ALLERGIES: SHE IS ALLERGIC TO PENICILLIN, SUCCINYLCHOLINE, AND FLU VACCINE. MEDICATIONS: She is on IV Lasix, Brovana, budesonide nebulizer, IV corticosteroid. Her all other medication is reviewed. PERSONAL AND SOCIAL HISTORY: The patient is a nonsmoker, nondrinker. FAMILY HISTORY: Noncontributory. PHYSICAL EXAMINATION: GENERAL: Now, the patient is sitting in chair. She is not in acute distress. VITAL SIGNS: The blood pressure is 117/55, pulse is 55, respirations 16, temperature is 98.1, SpO2 99% on 3 liters nasal cannula. HEENT: Conjunctivae are pink. Sclerae are not icteric. NECK: Supple, no JVD. CHEST: The chest excursion is minimal on both sides. There are bilateral crackles. No wheezing. HEART: Rhythm regular, normal sound, regular II/ systolic murmur. ABDOMEN: Soft, bowel sounds present. No hepatosplenomegaly. RECTAL: Deferred. EXTREMITIES: No cyanosis, no clubbing. There are 2+ pedal edema. CONSULT REPORT [id number] ADRY HENDRICKS SKIN: Warm, normal turgor. CENTRAL NERVOUS SYSTEM: The patient is awake and alert. There is no obvious cranial nerve abnormality. The gait was not tested. LABORATORY DATA: CBC: WBC 7.5, hemoglobin 10.1, hematocrit 35.1, the platelet count 231. Chemistry: Sodium is 143, potassium is 3.9, BUN is 21, creatinine is 0.9. IMPRESSION: 1. Dyspnea on exertion, which is multifactorial: A. Congestive heart failure B. Pulmonary edema. C. Pulmonary hypertension. 2. Chronic hypoxic respiratory failure. 3. History of severe aortic valve stenosis, status post aortic valve replacement. 4. Secondary pulmonary hypertension. RECOMMENDATIONS: 1. Continue diuresis. 2. Continue the nebulizer. I will decrease methylprednisolone IV. I will proceed with a CTA of the chest and repeat the cardiac echo. 3. Followup labs and chest x-ray. Dr. Munguia, thank you for involving me in the care of Ms. Hendricks. TRANSINT:[id number] Voice Confirmation ID: [id number] DOCUMENT ID: [id number] MELONIE CONTRERAS MD at 1208 CC: CALEB MUNGUIA MD [id number] DICTATION DATE: 06/19/171819 JUNIOR SOFTWARE ENGINEER: 06/20/17 0059 DIS IN 06/24/[address] [facility] [address] [place] [address]
--- NOTE | ~2017-06-08 | EC ---
PATIENT:ADRY HIGGINS DATE OF SERVICE: 06/08/17 SEX: F MEDICAL RECORD: [id number] DATE OF : 47 LOCATION:D.M2 D.213 AGE OF PATIENT: 71 ADMISSION DATE: 06/08/17 REFERRING PHYSICIAN: INTERPRETING PHYSICIAN: TIFFANI RICE MD ECHOCARDIOGRAM REPORT ECHO CHARGES 5 ECHO LIMITED Date: 06/21 1 DOPPLER ECHO COLOR FLOW 2 DOPPLER ECHO PULSE CLINICAL DIAGNOSIS: CHF/DYSPNEA - S/P AVR ECHOCARDIOGRAPHIC MEASUREMENTS (adult normal given) AC root (d.<3.7cm) 2.5 cm LV Septum d (<1.2 cm> cm Valve Excursion 1.4 cm LV Septum (systole) cm Left Atria (s.<4.0cm> cm LVPW d(<1.2cm) cm RV (d.<2.3cm) 3.0 cm LVPW (sytole) cm LV diastole(<5.6CM) cm MV E-F(>70mm/sec) cm LV systole cm LVOT Diameter 1.5 cm MV exc.(>10mm) cm Est.ejection fraction (50-75%) % DOPPLER: LVIT cm/sec A cm/sec E cm/sec LA cm/sec RVSP 82.0 mmHg LVOT 117 cm/sec AOP1/2T m/s Asc. Ao 238 cm/sec RVOT cm/sec RA cm/sec PA cm/sec AV Gradient Peak 23.0 mmHg AV Mean 13.0 mmHg AV Area 0.9 cm MV Gradient Peak mmHg MV Mean mmHg MV Area cm COMMENTS: LIMITED ECHO WITH 2-D,COLOR,DOPPLER COMPLETE ECHO DONE ON 05/01/17 Pediatric Nephrologist: Tomasz LARSONOE Dielectric Embossing Machine Operator: 1 Dr. Rice TAPE# PACS Pericardial Effusion N DATE OF SERVICE: 06/21/2017 PROCEDURE: Echocardiogram. FINDINGS: 1. Left ventricular chamber size is within normal limits. Left ventricular systolic function is normal. Overall ejection fraction estimated at 55%. 2. Left atrium, right atrium, and right ventricle chamber sizes are mildly dilated. 3. Valvular structures: Aortic valve is replaced with a tissue prosthesis that ECHOCARDIOGRAM REPORT [id number] ADRY HIGGINS has normal structure and function in this position. 4. Doppler interrogation reveals moderate mitral regurgitation, [id number] tricuspid regurgitation, no other valvular insufficiency or stenosis. Pulmonary systolic pressure is significantly elevated estimated at 82 mmHg. 4. No evidence of pericardial effusion or left ventricular thrombus. TRANSINT:[id number] Voice Confirmation ID: [id number] DOCUMENT ID: [id number] TIFFANI RICE MD at 1630 CC: [id number] DICTATION DATE: 06/22/17 1148 ADVERTISING PROJECT MANAGER: 06/22/17 1228 ADM IN [place] [id number] [place] [address]
[~2017-06-08 14:23] MED LIST changes: +ATIVAN0.5 MG PO; +LASIX20 MG PO; +Zaroxolyn PO
[2017-06-08 15:10] LABS: BASOPHILS 0.5 % (0-2); HEMATOCRIT 37.5 % (36.0-48.0); HEMOGLOBIN 10.7 g/dL (12-16); IMMATURE GRANULOCYTES 0.3 % (0-5); LYMPHOCYTES 17.7 % (15-50); MCHC 28.5 g/dL (31.0-37.0); MCV 80.6 fL (80.0-100.0); MEAN PLATELET VOLUME 9.6 fL (7.4-10.4); MONOCYTES 11.9 % (2-11); NEUTROPHILS 62.6 % (40-80); PLATELET COUNT 255 10x3/uL (130-400); RBC 4.65 10x6/uL (4.00-5.40); RDW 16.9 % (11.5-14.5); WBC 9.2 10x3/uL (4.8-10.8)
[2017-06-08 15:26] LABS: ALBUMIN 2.9 g/dL (3.4-5.0); ALKALINE PHOSPHATASE 48 U/L (46-116); ALT (SGPT) 10 U/L (10-68); BILIRUBIN - TOTAL 0.68 mg/dL (0.2-1.3); CALC OSMOLALITY 282 mosm/kg (275-300); CALCIUM 8.2 mg/dL (8.5-10.1); CARBON DIOXIDE 31.9 mmol/L (21.0-32.0); CHLORIDE - SERUM 104 mmol/L (98-107); CREATININE - SERUM 0.7 mg/dL (0.6-1.3); GLUCOSE 112 mg/dL (74-106); POTASSIUM - SERUM 3.6 mmol/L (3.5-5.1); PROTEIN - SERUM 7.2 g/dL (6.4-8.2); SODIUM 141 mmol/L (136-145); UREA NITROGEN 14 mg/dL (7-18); eGFR NON AFRICAN AMERICAN 88 mL/min (90-120)
[2017-06-08 15:39] LABS: CKMB 0.1 U/L (0.0-3.6); PRO BNP 864 pg/mL (0-125)
[2017-06-08 15:43] LABS: TROPONIN-I 0.016 ng/mL (0.000-0.060)
[2017-06-08 15:52] LABS: INR 2.2 (0.85-1.17); PROTIME 23.8 SECONDS (11.6-15.0)
[2017-06-08 15:53] LABS: APTT 39.5 SECONDS (22.8-39.4)
[2017-06-09] VITALS (7 sets, daily range): BP systolic 104–131; BP diastolic 50–72
[2017-06-09] MEDS ORDERED: KLONOPIN1 MG PO (01:40)
[2017-06-09] MEDS ORDERED: BETAPACE 80 MG80 MG PO (13:14)
[2017-06-09 14:29] LABS: % SATURATION 8 % (15-55); IRON 28 ug/dl (35-150); TOTAL IRON BIND CAPACITY 330 ug/dl (260-445); UNSAT IRON BIND CAPACITY 302 ug/dl (150-375)
[2017-06-09 14:30] LABS: MAGNESIUM - SERUM 1.7 mg/dL (1.8-2.4); T4 THYROXIN - FREE 1.3 ng/dL (0.76-1.46); THYROID STIMULATING HORMONE 0.96 uIU/mL (0.36-3.74)
[2017-06-10 04:00] VITALS: BP 124/52
[2017-06-10 05:44] LABS: BASOPHILS 0.5 % (0-2); EOSINOPHILS 7.1 % (0-7); HEMOGLOBIN 10.4 g/dL (12-16); IMMATURE GRANULOCYTES 0.4 % (0-5); LYMPHOCYTES 21.2 % (15-50); MCH 23.4 pg (26.0-34.0); MCHC 28.9 g/dL (31.0-37.0); MCV 80.9 fL (80.0-100.0); MEAN PLATELET VOLUME 10.3 fL (7.4-10.4); MONOCYTES 14.1 % (2-11); NEUTROPHILS 56.7 % (40-80); PLATELET COUNT 273 10x3/uL (130-400); RBC 4.45 10x6/uL (4.00-5.40); RDW 17.4 % (11.5-14.5); WBC 7.5 10x3/uL (4.8-10.8)
[2017-06-10 05:52] LABS: INR 1.83 (0.85-1.17); PROTIME 20.6 SECONDS (11.6-15.0)
[2017-06-10 06:35] LABS: CALCIUM 7.8 mg/dL (8.5-10.1)
[2017-06-10 06:36] LABS: CREATININE - SERUM 0.9 mg/dL (0.6-1.3)
[2017-06-10 07:26] LABS: ANION GAP 10.1 mmol/L (8-16); POTASSIUM - SERUM 3.1 mmol/L (3.5-5.1)
[2017-06-10 08:00] VITALS: BP 142/70
[2017-06-10 10:22] LABS: FOLATE (FOLIC ACID) - SERUM 7.1 ng/mL (>3.0)
[2017-06-10 11:39] VITALS: BP 138/77
[2017-06-10 13:16] VITALS: Ht 175.3 cm; Wt 107.5 kg
[2017-06-10 15:52] VITALS: BP 124/52
[2017-06-10 20:58] VITALS: BP 113/62
[2017-06-11 05:58] VITALS: BP 112/57
[2017-06-11 06:09] LABS: BASOPHILS 0.4 % (0-2); EOSINOPHILS 7.5 % (0-7); HEMATOCRIT 36.5 % (36.0-48.0); HEMOGLOBIN 10.5 g/dL (12-16); IMMATURE GRANULOCYTES 0.3 % (0-5); LYMPHOCYTES 18.3 % (15-50); MCHC 28.8 g/dL (31.0-37.0); MEAN PLATELET VOLUME 9.7 fL (7.4-10.4); MONOCYTES 11.7 % (2-11); NEUTROPHILS 61.8 % (40-80); PLATELET COUNT 237 10x3/uL (130-400); RBC 4.56 10x6/uL (4.00-5.40); RDW 17.5 % (11.5-14.5); WBC 9.3 10x3/uL (4.8-10.8)
[2017-06-11 06:18] LABS: INR 1.83 (0.85-1.17); PROTIME 20.6 SECONDS (11.6-15.0)
[2017-06-11 06:24] LABS: ANION GAP 12.5 mmol/L (8-16); CALCIUM 8.5 mg/dL (8.5-10.1); CARBON DIOXIDE 33.1 mmol/L (21.0-32.0); POTASSIUM - SERUM 3.6 mmol/L (3.5-5.1)
[2017-06-11 07:49] VITALS: BP 115/64
[2017-06-11 10:57] VITALS: BP 106/60
[2017-06-11 15:11] VITALS: BP 104/62
[2017-06-11 21:42] VITALS: BP 109/54
[2017-06-12 02:01] VITALS: BP 111/4
[2017-06-12 05:32] VITALS: BP 129/68
[2017-06-12 06:55] LABS: BASOPHILS 0.5 % (0-2); EOSINOPHILS 8.8 % (0-7); HEMATOCRIT 36.7 % (36.0-48.0); HEMOGLOBIN 10.6 g/dL (12-16); IMMATURE GRANULOCYTES 0.4 % (0-5); LYMPHOCYTES 17.3 % (15-50); MCH 23.3 pg (26.0-34.0); MCHC 28.9 g/dL (31.0-37.0); MCV 80.7 fL (80.0-100.0); MEAN PLATELET VOLUME 9.8 fL (7.4-10.4); MONOCYTES 10.1 % (2-11); NEUTROPHILS 62.9 % (40-80); PLATELET COUNT 252 10x3/uL (130-400); RBC 4.55 10x6/uL (4.00-5.40); RDW 17.8 % (11.5-14.5); WBC 9.3 10x3/uL (4.8-10.8)
[2017-06-12 07:07] LABS: INR 1.95 (0.85-1.17); PROTIME 21.7 SECONDS (11.6-15.0)
[2017-06-12 07:15] LABS: ANION GAP 9.6 mmol/L (8-16); CALCIUM 8.5 mg/dL (8.5-10.1); POTASSIUM - SERUM 3.6 mmol/L (3.5-5.1)
[2017-06-12 07:40] VITALS: BP 127/72
[2017-06-12 11:52] VITALS: BP 113/43
[2017-06-12 15:24] VITALS: BP 125/75
[2017-06-12 20:00] VITALS: BP 116/62
[2017-06-13 01:00] VITALS: BP 104/36
[2017-06-13 04:00] VITALS: BP 114/45
[2017-06-13 05:41] LABS: BASOPHILS 0.5 % (0-2); EOSINOPHILS 9.5 % (0-7); HEMATOCRIT 34.2 % (36.0-48.0); HEMOGLOBIN 9.8 g/dL (12-16); IMMATURE GRANULOCYTES 0.4 % (0-5); LYMPHOCYTES 22.3 % (15-50); MCH 23.4 pg (26.0-34.0); MCHC 28.7 g/dL (31.0-37.0); MCV 81.6 fL (80.0-100.0); MEAN PLATELET VOLUME 9.6 fL (7.4-10.4); MONOCYTES 10.6 % (2-11); NEUTROPHILS 56.7 % (40-80); PLATELET COUNT 266 10x3/uL (130-400); RBC 4.19 10x6/uL (4.00-5.40); RDW 18.3 % (11.5-14.5)
[2017-06-13 05:51] LABS: CALCIUM 8.2 mg/dL (8.5-10.1); CARBON DIOXIDE 36.4 mmol/L (21.0-32.0); CREATININE - SERUM 0.9 mg/dL (0.6-1.3); POTASSIUM - SERUM 3.4 mmol/L (3.5-5.1)
[2017-06-13 06:01] LABS: INR 1.97 (0.85-1.17); PROTIME 21.9 SECONDS (11.6-15.0)
[2017-06-13 09:14] VITALS: BP 120/71
[2017-06-13 12:23] VITALS: BP 99/43
[2017-06-14 05:48] VITALS: BP 152/74
[2017-06-14 05:55] LABS: BASOPHILS 0.5 % (0-2); EOSINOPHILS 7.8 % (0-7); HEMATOCRIT 36.2 % (36.0-48.0); HEMOGLOBIN 10.3 g/dL (12-16); IMMATURE GRANULOCYTES 0.4 % (0-5); LYMPHOCYTES 20.6 % (15-50); MCH 23.3 pg (26.0-34.0); MCHC 28.5 g/dL (31.0-37.0); MCV 81.7 fL (80.0-100.0); MEAN PLATELET VOLUME 9.6 fL (7.4-10.4); MONOCYTES 11.5 % (2-11); NEUTROPHILS 59.2 % (40-80); PLATELET COUNT 260 10x3/uL (130-400); RBC 4.43 10x6/uL (4.00-5.40); RDW 18.6 % (11.5-14.5); WBC 8.3 10x3/uL (4.8-10.8)
[2017-06-14 06:11] LABS: CALC OSMOLALITY 286 mosm/kg (275-300); CALCIUM 8.7 mg/dL (8.5-10.1); CARBON DIOXIDE 32.9 mmol/L (21.0-32.0); CHLORIDE - SERUM 102 mmol/L (98-107); CREATININE - SERUM 0.8 mg/dL (0.6-1.3); GLUCOSE 105 mg/dL (74-106); POTASSIUM - SERUM 3.2 mmol/L (3.5-5.1); PROTIME 22.1 SECONDS (11.6-15.0); SODIUM 142 mmol/L (136-145); UREA NITROGEN 23 mg/dL (7-18); eGFR NON AFRICAN AMERICAN 75 mL/min (90-120)
[2017-06-14 08:02] VITALS: BP 119/66
[2017-06-14 11:16] VITALS: BP 137/45
[2017-06-14 15:01] VITALS: BP 134/64
[2017-06-14 20:00] VITALS: BP 116/51
[2017-06-15] VITALS: BP 118/58
[2017-06-15 04:00] VITALS: BP 112/60
[2017-06-15 09:17] VITALS: BP 154/81
[2017-06-15 10:44] VITALS: BP 144/78
[2017-06-15 13:16] LABS: BASOPHILS 0.4 % (0-2); HEMATOCRIT 37.3 % (36.0-48.0); HEMOGLOBIN 10.7 g/dL (12-16); IMMATURE GRANULOCYTES 0.4 % (0-5); LYMPHOCYTES 19.9 % (15-50); MCH 23.9 pg (26.0-34.0); MCHC 28.7 g/dL (31.0-37.0); MCV 83.3 fL (80.0-100.0); MEAN PLATELET VOLUME 9.8 fL (7.4-10.4); NEUTROPHILS 64.3 % (40-80); PLATELET COUNT 266 10x3/uL (130-400); RBC 4.48 10x6/uL (4.00-5.40); RDW 19.7 % (11.5-14.5); WBC 7.8 10x3/uL (4.8-10.8)
[2017-06-15 13:25] LABS: ANION GAP 12.6 mmol/L (8-16); CALCIUM 8.5 mg/dL (8.5-10.1); CARBON DIOXIDE 31.3 mmol/L (21.0-32.0); CREATININE - SERUM 0.9 mg/dL (0.6-1.3); POTASSIUM - SERUM 3.9 mmol/L (3.5-5.1)
[2017-06-15 13:30] LABS: INR 2.27 (0.85-1.17); PROTIME 24.4 SECONDS (11.6-15.0)
[2017-06-15 15:17] VITALS: BP 151/76
[2017-06-15 19:42] VITALS: BP 123/55
[2017-06-16 00:58] VITALS: BP 136/57
[2017-06-16 04:00] VITALS: BP 133/72
[2017-06-16 06:51] LABS: BASOPHILS 0.3 % (0-2); EOSINOPHILS 6.3 % (0-7); HEMATOCRIT 35.8 % (36.0-48.0); HEMOGLOBIN 10.2 g/dL (12-16); IMMATURE GRANULOCYTES 0.4 % (0-5); LYMPHOCYTES 21.7 % (15-50); MCH 23.7 pg (26.0-34.0); MCHC 28.5 g/dL (31.0-37.0); MCV 83.1 fL (80.0-100.0); MEAN PLATELET VOLUME 9.3 fL (7.4-10.4); MONOCYTES 11.3 % (2-11); PLATELET COUNT 236 10x3/uL (130-400); RBC 4.31 10x6/uL (4.00-5.40); RDW 19.7 % (11.5-14.5); WBC 7.4 10x3/uL (4.8-10.8)
[2017-06-16 07:22] LABS: CALC OSMOLALITY 289 mosm/kg (275-300); CALCIUM 8.5 mg/dL (8.5-10.1); CARBON DIOXIDE 32.9 mmol/L (21.0-32.0); CHLORIDE - SERUM 104 mmol/L (98-107); CREATININE - SERUM 0.8 mg/dL (0.6-1.3); GLUCOSE 107 mg/dL (74-106); POTASSIUM - SERUM 3.5 mmol/L (3.5-5.1); SODIUM 144 mmol/L (136-145); UREA NITROGEN 20 mg/dL (7-18); eGFR NON AFRICAN AMERICAN 75 mL/min (90-120)
[2017-06-16 07:46] VITALS: BP 147/45
[2017-06-16 10:36] VITALS: BP 144/52
[2017-06-16 16:15] VITALS: BP 109/53
[2017-06-16 20:00] VITALS: BP 109/52
[2017-06-17] VITALS: BP 117/52
[2017-06-17 04:00] VITALS: BP 136/65
[2017-06-17 08:53] VITALS: BP 150/56
[2017-06-17 14:40] LABS: ANION GAP 13.4 mmol/L (8-16); CALCIUM 8.7 mg/dL (8.5-10.1); CARBON DIOXIDE 31.5 mmol/L (21.0-32.0); POTASSIUM - SERUM 3.9 mmol/L (3.5-5.1)
[2017-06-17 14:43] LABS: BASOPHILS 0.5 % (0-2); HEMATOCRIT 36.9 % (36.0-48.0); HEMOGLOBIN 10.4 g/dL (12-16); IMMATURE GRANULOCYTES 0.5 % (0-5); LYMPHOCYTES 22.7 % (15-50); MCH 23.8 pg (26.0-34.0); MCHC 28.2 g/dL (31.0-37.0); MCV 84.4 fL (80.0-100.0); MEAN PLATELET VOLUME 9.9 fL (7.4-10.4); MONOCYTES 11.4 % (2-11); NEUTROPHILS 57.9 % (40-80); PLATELET COUNT 243 10x3/uL (130-400); RBC 4.37 10x6/uL (4.00-5.40); RDW 20.2 % (11.5-14.5); WBC 6.6 10x3/uL (4.8-10.8)
[2017-06-17 15:38] VITALS: BP 136/45
[2017-06-17 21:12] VITALS: BP 135/63
[2017-06-18 01:46] VITALS: BP 132/56
[2017-06-18 05:05] VITALS: BP 140/62
[2017-06-18 06:27] LABS: BASOPHILS 0.4 % (0-2); HEMATOCRIT 35.5 % (36.0-48.0); HEMOGLOBIN 10.2 g/dL (12-16); IMMATURE GRANULOCYTES 0.3 % (0-5); LYMPHOCYTES 21.1 % (15-50); MCH 23.9 pg (26.0-34.0); MCHC 28.7 g/dL (31.0-37.0); MCV 83.3 fL (80.0-100.0); MEAN PLATELET VOLUME 9.7 fL (7.4-10.4); MONOCYTES 12.4 % (2-11); NEUTROPHILS 58.8 % (40-80); PLATELET COUNT 213 10x3/uL (130-400); RBC 4.26 10x6/uL (4.00-5.40); RDW 20.4 % (11.5-14.5)
[2017-06-18 06:52] LABS: ALBUMIN 2.9 g/dL (3.4-5.0); ANION GAP 10.5 mmol/L (8-16); BILIRUBIN - TOTAL 0.6 mg/dL (0.2-1.3); CALCIUM 8.5 mg/dL (8.5-10.1); CREATININE - SERUM 0.9 mg/dL (0.6-1.3); POTASSIUM - SERUM 3.5 mmol/L (3.5-5.1); PROTEIN - SERUM 6.8 g/dL (6.4-8.2)
[2017-06-18 07:00] LABS: INR 2.35 (0.85-1.17); PROTIME 25.1 SECONDS (11.6-15.0)
[2017-06-18 08:23] VITALS: BP 141/63
[2017-06-18 11:48] VITALS: BP 136/75
[2017-06-18 17:25] VITALS: BP 131/60
[2017-06-18 20:55] VITALS: BP 125/80
[2017-06-19 00:20] VITALS: BP 125/56
[2017-06-19 04:49] VITALS: BP 147/70
[2017-06-19 06:25] LABS: BASOPHILS 0.5 % (0-2); EOSINOPHILS 6.7 % (0-7); HEMATOCRIT 35.1 % (36.0-48.0); HEMOGLOBIN 10.1 g/dL (12-16); IMMATURE GRANULOCYTES 0.1 % (0-5); LYMPHOCYTES 19.8 % (15-50); MCHC 28.8 g/dL (31.0-37.0); MCV 83.4 fL (80.0-100.0); MONOCYTES 11.9 % (2-11); PLATELET COUNT 231 10x3/uL (130-400); RBC 4.21 10x6/uL (4.00-5.40); RDW 20.9 % (11.5-14.5); WBC 7.5 10x3/uL (4.8-10.8)
[2017-06-19 06:56] LABS: ALBUMIN 2.9 g/dL (3.4-5.0); ANION GAP 12.1 mmol/L (8-16); BILIRUBIN - TOTAL 0.6 mg/dL (0.2-1.3); CALCIUM 8.4 mg/dL (8.5-10.1); CARBON DIOXIDE 32.2 mmol/L (21.0-32.0); POTASSIUM - SERUM 3.3 mmol/L (3.5-5.1); PROTEIN - SERUM 6.7 g/dL (6.4-8.2)
[2017-06-19 08:18] VITALS: BP 129/69
[2017-06-19 11:20] VITALS: BP 143/64
[2017-06-19 15:09] VITALS: BP 117/55
[2017-06-19 20:00] VITALS: BP 133/53
[2017-06-20] VITALS: BP 134/59
[2017-06-20 04:00] VITALS: BP 140/75
[2017-06-20 06:25] LABS: BASOPHILS 0 % (0-2); EOSINOPHILS 0 % (0-7); HEMATOCRIT 37.1 % (36.0-48.0); HEMOGLOBIN 10.8 g/dL (12-16); IMMATURE GRANULOCYTES 0.2 % (0-5); LYMPHOCYTES 10.9 % (15-50); MCH 24.1 pg (26.0-34.0); MCHC 29.1 g/dL (31.0-37.0); MCV 82.8 fL (80.0-100.0); MEAN PLATELET VOLUME 9.7 fL (7.4-10.4); MONOCYTES 1.5 % (2-11); NEUTROPHILS 87.4 % (40-80); PLATELET COUNT 226 10x3/uL (130-400); RBC 4.48 10x6/uL (4.00-5.40)
[2017-06-20 06:26] LABS: WBC 5.4 10x3/uL (4.8-10.8)
[2017-06-20 06:53] LABS: ALBUMIN 3.1 g/dL (3.4-5.0); ANION GAP 10.3 mmol/L (8-16); BILIRUBIN - TOTAL 0.7 mg/dL (0.2-1.3); CARBON DIOXIDE 31.5 mmol/L (21.0-32.0); CREATININE - SERUM 0.9 mg/dL (0.6-1.3); POTASSIUM - SERUM 3.8 mmol/L (3.5-5.1); PROTEIN - SERUM 7.5 g/dL (6.4-8.2)
[2017-06-20 08:36] VITALS: BP 127/60
[2017-06-20 11:34] VITALS: BP 111/50
[2017-06-20 15:15] LABS: INR 3.15 (0.85-1.17); PROTIME 31.6 SECONDS (11.6-15.0)
[2017-06-20 15:42] VITALS: BP 124/62
[2017-06-20 19:00] VITALS: BP 152/62
[2017-06-21 03:51] VITALS: BP 146/58
[2017-06-21 06:01] LABS: BASOPHILS 0 % (0-2); EOSINOPHILS 0 % (0-7); HEMATOCRIT 36.1 % (36.0-48.0); HEMOGLOBIN 10.7 g/dL (12-16); IMMATURE GRANULOCYTES 0.3 % (0-5); LYMPHOCYTES 6.7 % (15-50); MCH 24.3 pg (26.0-34.0); MCHC 29.6 g/dL (31.0-37.0); MEAN PLATELET VOLUME 10.1 fL (7.4-10.4); MONOCYTES 5.9 % (2-11); NEUTROPHILS 87.1 % (40-80); PLATELET COUNT 242 10x3/uL (130-400); RDW 21.1 % (11.5-14.5)
[2017-06-21 06:06] LABS: WBC 12.4 10x3/uL (4.8-10.8)
[2017-06-21 06:20] LABS: ALBUMIN 3.1 g/dL (3.4-5.0); ALKALINE PHOSPHATASE 49 U/L (46-116); ALT (SGPT) 18 U/L (10-68); CALC OSMOLALITY 288 mosm/kg (275-300); CALCIUM 8.5 mg/dL (8.5-10.1); CARBON DIOXIDE 32.4 mmol/L (21.0-32.0); CHLORIDE - SERUM 103 mmol/L (98-107); CREATININE - SERUM 0.8 mg/dL (0.6-1.3); GLUCOSE 157 mg/dL (74-106); POTASSIUM - SERUM 3.7 mmol/L (3.5-5.1); PROTEIN - SERUM 6.7 g/dL (6.4-8.2); SODIUM 141 mmol/L (136-145); UREA NITROGEN 27 mg/dL (7-18); eGFR NON AFRICAN AMERICAN 75 mL/min (90-120)
[2017-06-21 06:39] LABS: INR 3.17 (0.85-1.17); PROTIME 31.7 SECONDS (11.6-15.0)
[2017-06-21 07:51] VITALS: BP 109/62
[2017-06-21 11:21] VITALS: BP 114/68
[2017-06-21 15:07] VITALS: BP 106/58
[2017-06-21 20:00] VITALS: BP 131/66
[2017-06-22] VITALS: BP 128/60
[2017-06-22 04:00] VITALS: BP 138/96
[2017-06-22 06:16] LABS: BASOPHILS 0 % (0-2); EOSINOPHILS 0 % (0-7); HEMATOCRIT 36.9 % (36.0-48.0); HEMOGLOBIN 10.9 g/dL (12-16); IMMATURE GRANULOCYTES 0.4 % (0-5); LYMPHOCYTES 5.4 % (15-50); MCH 24.5 pg (26.0-34.0); MCHC 29.5 g/dL (31.0-37.0); MCV 82.9 fL (80.0-100.0); MEAN PLATELET VOLUME 9.9 fL (7.4-10.4); MONOCYTES 7.6 % (2-11); NEUTROPHILS 86.6 % (40-80); PLATELET COUNT 225 10x3/uL (130-400); RBC 4.45 10x6/uL (4.00-5.40); RDW 21.6 % (11.5-14.5); WBC 12.6 10x3/uL (4.8-10.8)
[2017-06-22 06:59] LABS: ALBUMIN 3.1 g/dL (3.4-5.0); ALKALINE PHOSPHATASE 47 U/L (46-116); CALC OSMOLALITY 292 mosm/kg (275-300); CALCIUM 8.6 mg/dL (8.5-10.1); CARBON DIOXIDE 27.9 mmol/L (21.0-32.0); CHLORIDE - SERUM 102 mmol/L (98-107); CREATININE - SERUM 0.7 mg/dL (0.6-1.3); GLUCOSE 163 mg/dL (74-106); POTASSIUM - SERUM 3.6 mmol/L (3.5-5.1); SODIUM 142 mmol/L (136-145); UREA NITROGEN 28 mg/dL (7-18); eGFR NON AFRICAN AMERICAN 88 mL/min (90-120)
[2017-06-22 07:03] LABS: ALT (SGPT) 28 U/L (10-68)
[2017-06-22 07:13] LABS: INR 4.05 (0.85-1.17); PROTIME 38.5 SECONDS (11.6-15.0)
[2017-06-22 09:14] VITALS: BP 183/85
[2017-06-22 11:40] VITALS: BP 146/62
[2017-06-22 15:36] VITALS: BP 143/67
[2017-06-22 20:00] VITALS: BP 134/67
[2017-06-23] VITALS: BP 138/58
[2017-06-23 04:00] VITALS: BP 137/63
[2017-06-23 05:14] LABS: BASOPHILS 0 % (0-2); EOSINOPHILS 0 % (0-7); HEMATOCRIT 39.8 % (36.0-48.0); HEMOGLOBIN 11.5 g/dL (12-16); IMMATURE GRANULOCYTES 0.4 % (0-5); LYMPHOCYTES 5.8 % (15-50); MCH 24.3 pg (26.0-34.0); MCHC 28.9 g/dL (31.0-37.0); MEAN PLATELET VOLUME 10.4 fL (7.4-10.4); MONOCYTES 7.1 % (2-11); NEUTROPHILS 86.7 % (40-80); PLATELET COUNT 244 10x3/uL (130-400); RBC 4.74 10x6/uL (4.00-5.40); RDW 21.2 % (11.5-14.5); WBC 10.2 10x3/uL (4.8-10.8)
[2017-06-23 05:32] LABS: INR 3.82 (0.85-1.17); PROTIME 36.8 SECONDS (11.6-15.0)
[2017-06-23 05:43] LABS: ANION GAP 11.6 mmol/L (8-16); CALCIUM 8.8 mg/dL (8.5-10.1); CARBON DIOXIDE 30.3 mmol/L (21.0-32.0); POTASSIUM - SERUM 3.9 mmol/L (3.5-5.1)
[2017-06-23 05:59] LABS: CREATININE - SERUM 0.9 mg/dL (0.6-1.3)
[2017-06-23 07:59] VITALS: BP 147/79
[2017-06-23 11:27] VITALS: BP 124/63
[2017-06-23 15:22] VITALS: BP 149/65
[2017-06-23 20:00] VITALS: BP 143/59
[2017-06-24] VITALS: BP 130/47
[2017-06-24 04:00] VITALS: BP 133/61
[2017-06-24 05:37] LABS: BASOPHILS 0 % (0-2); EOSINOPHILS 0.1 % (0-7); HEMATOCRIT 39.3 % (36.0-48.0); HEMOGLOBIN 11.5 g/dL (12-16); IMMATURE GRANULOCYTES 0.6 % (0-5); LYMPHOCYTES 15.8 % (15-50); MCH 24.4 pg (26.0-34.0); MCHC 29.3 g/dL (31.0-37.0); MCV 83.4 fL (80.0-100.0); MEAN PLATELET VOLUME 10.3 fL (7.4-10.4); MONOCYTES 13.6 % (2-11); NEUTROPHILS 69.9 % (40-80); PLATELET COUNT 250 10x3/uL (130-400); RBC 4.71 10x6/uL (4.00-5.40); RDW 21.2 % (11.5-14.5); WBC 11.9 10x3/uL (4.8-10.8)
[2017-06-24 06:00] LABS: CALC OSMOLALITY 286 mosm/kg (275-300); CALCIUM 8.6 mg/dL (8.5-10.1); CARBON DIOXIDE 33.9 mmol/L (21.0-32.0); CHLORIDE - SERUM 100 mmol/L (98-107); CREATININE - SERUM 0.8 mg/dL (0.6-1.3); GLUCOSE 117 mg/dL (74-106); POTASSIUM - SERUM 3.2 mmol/L (3.5-5.1); SODIUM 140 mmol/L (136-145); UREA NITROGEN 33 mg/dL (7-18); eGFR NON AFRICAN AMERICAN 75 mL/min (90-120)
[2017-06-24 06:07] LABS: INR 2.8 (0.85-1.17); PROTIME 28.8 SECONDS (11.6-15.0)
[2017-06-24 08:30] VITALS: BP 140/77
[2017-06-24] MEDS ORDERED: COUMADIN4 MG PO (10:16)
[2017-06-24] MEDS ORDERED: ALDACTONE25 MG PO (10:17)
[2017-06-24] MEDS ORDERED: COREG 3.1253.125 MG PO (10:17)
[2017-06-24] MEDS ORDERED: BUMEX2 MG PO (10:18)
[2017-06-24] MEDS ORDERED: TESSALON PERLE100 MG PO (10:18)
[2017-06-24 11:04] VITALS: BP 139/82
[2017-06-24] MEDS ORDERED: IPRAT-ALBUT 0.5-3 ML UPD (11:13)
[2017-06-24] MEDS ORDERED: PULMICORT0.5 MG/21 INH (11:13)
[2017-06-24] MEDS ORDERED: BROVANA15 MCG/2 M INH (11:13)
== END 2017-06-24 14:50 | disposition home health service (06) | DRG 291 ==
LOC: D.ER 14:23 → D.EDHOLD 18:07 → D.M2 18:07
PROVIDERS: Emergency Medicine; Family Medicine; Internal Medicine Nephrology
DX: I11.0 Hypertensive heart disease with heart failure (principal); J96.21 Acute and chronic respiratory failure with hypoxia; J98.11 Atelectasis; J44.1 Chronic obstructive pulmonary disease with (acute) exacerbation; I50.21 Acute systolic (congestive) heart failure; Z79.01 Long term (current) use of anticoagulants; R00.0 Tachycardia, unspecified; I25.10 Atherosclerotic heart disease of native coronary artery without angina pectoris; I27.20 Pulmonary hypertension, unspecified; D50.9 Iron deficiency anemia, unspecified; Z95.1 Presence of aortocoronary bypass graft; Z95.5 Presence of coronary angioplasty implant and graft; Z95.2 Presence of prosthetic heart valve; Z86.73 Personal history of transient ischemic attack (TIA), and cerebral infarction without residual deficits; E11.65 Type 2 diabetes mellitus with hyperglycemia; I48.2 Chronic atrial fibrillation; I08.1 Rheumatic disorders of both mitral and tricuspid valves; E11.40 Type 2 diabetes mellitus with diabetic neuropathy, unspecified